=== PATIENT | male | born 1955 | race Caucasian/White ===

== ENCOUNTER 2017-07-17 19:34 | Observation (INO) ==
[2017-07-17] MEDS ORDERED: Aspirin 81 MG TAB.CHEW PO ONE (19:45)
--- NOTE | 2017-07-17 19:49 | Emergency Department Note ---
Disposition Clinical Impression: Chest pain Qualifiers: Chest pain type: unspecified Qualified Code(s): R07.9 - Chest pain, unspecified Headache Qualifiers: Headache type: unspecified Headache chronicity pattern: acute headache Intractability: not intractable Qualified Code(s): R51 - Headache Disposition: Admitted As Inpatient Condition: Good Referrals: Anu Forman CNP [Primary Care Provider] - Forms: ED Satisfaction Letter General Adult HPI - General Chief complaint: ED Chest Pain Stated complaint: chest pain Time Seen by Provider: 07/17/17 19:41 Source: patient, family Limitations: no limitations Nursing Notes Reviewed: Yes Vital Signs Reviewed: Yes - History of Present Illness HPI Narrative: Male patient presenting to the emergency department complaining of a 2 hour history of left-sided chest pain. States it radiates down his left arm up to his neck and in his head. Was not doing anything when this started. States that he was diaphoretic when it started and got nauseated. No vomiting. Pain Scale: 6 - Related Data Home Medications Medication Instructions Recorded Confirmed Atorvastatin [Lipitor] 40 mg PO HS 01/11/17 07/17/17 Gabapentin [Neurontin] 800 mg PO TID 01/11/17 07/17/17 Empagliflozin [Jardiance] 10 mg PO DAILY 07/17/17 07/17/17 HYDROcodone/Acet 10/325 mg [[place] 1 tab PO Q6HR PRN 07/17/17 07/17/17 10-325 mg] Allergies Allergy/AdvReac Type Severity Reaction Status Date / Time acetaminophen [From Percocet] AdvReac Gastrointestinal Verified 07/17/17 19:42 Upset meloxicam [From Mobic] AdvReac Gastrointestinal Verified 07/17/17 19:42 Upset Oxycodone [From Percocet] AdvReac Gastrointestinal Verified 07/17/17 19:42 Upset All systems ED: reviewed and negative except as stated. Constitutional: Denies: fever, chills ENT ED: Denies: congestion Cardiovascular: Reports: chest pain. Denies: palpitations, dyspnea on exertion , syncope Respiratory: Denies: cough, dyspnea, wheezes Gastrointestinal: Denies: abdominal pain, nausea, vomiting, diarrhea, hematemesis, melena, hematochezia Genitourinary: Denies: urgency, dysuria, frequency, hematuria Musculoskeletal: Denies: back pain, neck pain Integumentary: Denies: rash, abrasion, lesions Neurological: Reports: headache. Denies: weakness, numbness, paresthesias Past Medical History - Past Medical History Attestation: Yes The following information was validated with the patient. Source: patient Medical history: Reports: arthritis, diabetes, hyperlipidemia Surgical history: Reports: knee replacement Psychiatric history: Reports: no psych history - Social History Smoking Status: Current every day smoker Smokeless Tobacco Status: No Alcohol use: Reports: occasionally Drug use: Reports: none Physical Exam - General Limitations: no limitations General appearance: alert, in distress (Appears to be in pain.) - Head Head exam: atraumatic, normocephalic, normal inspection - Eye Eye exam: Present: normal appearance, PERRL, EOMI - ENT ENT exam: normal exam, normal oropharynx, mucous membranes moist - Neck Neck exam: Present: normal inspection, full ROM, trachea midline - Chest Chest inspection: Present: normal inspection, symmetric chest wall rise. Absent : tenderness - Respiratory Respiratory exam: Present: normal lung sounds bilaterally. Absent: respiratory distress, wheezes, accessory muscle use - Cardiovascular Cardiovascular exam: Present: regular rate, normal rhythm, normal heart sounds - Abdominal Exam Abdominal exam: Present: soft, Non-Tender. Absent: tenderness, distention, guarding, rebound, rigidity, organomegaly - Extremities Exam Extremities exam: Present: normal inspection, full ROM, normal capillary refill. Absent: tenderness, pedal edema - Back Exam Back exam: Present: normal inspection, full ROM. Absent: tenderness - Neurological Exam Neurological exam: Present: alert, oriented X3 - Psychiatric Psychiatric exam: Present: normal affect, normal mood - Skin Skin exam: Present: warm, dry, intact, normal color. Absent: rash, cyanosis, diaphoresis, erythema Course Course Narrative: Patient presenting to the emergency department complaining of a 2 hour history of chest pain. He states it is left-sided. He describes it as a tightness and throbbing to the left side. He states it started out as a sharp pain. It radiates down his left arm. He has never had pain like this previously. He has no history of any heart issues. He is not nauseated with this. He is laying bed grimacing at this time. He denies any shortness of breath associated with this. Denies any fevers or chills. Lung sounds are clear heart tones are normal and abdomen is soft and nontender. He has no signs of edema to his extremities. He states he was not doing any activity whenever the pain started. He is diabetic. We will get basic lab workup on palpation as well as EKG right and with nitroglycerin and aspirin. States he can take aspirin - Reevaluation(s) Reevaluation #1: Patient is now complaining of left neck pain in the left-sided headache. He states that his chest pain is almost completely relieved at this time. He states that this was present prior to his chest pain starting. However while was in the room earlier he denied a headache. Will provide patient with pain medication. He refused any additional pain medication until after the CTA of his head and neck. Patient has no bruits that I can auscultate. There are no signs of Judith's syndrome. We will admit patient to the hospital for ACS rule out. Time: 20:56 Vital Signs Temperature 98.1 F 07/17/17 19:42 Pulse Rate 78 07/17/17 19:42 Respiratory Rate 20 07/17/17 19:42 Blood Pressure 143/79 07/17/17 19:42 O2 Sat by Pulse Oximetry 95 07/17/17 19:42 Temperature 98.1 F 07/17/17 19:42 Pulse Rate 77 07/17/17 21:12 Respiratory Rate 16 07/17/17 21:12 Blood Pressure 109/63 07/17/17 21:12 O2 Sat by Pulse Oximetry 94 07/17/17 21:12 Oxygen Delivery Oxygen Delivery Room Air Medical Decision Making - Medical Records Medical records reviewed: Yes I reviewed the patient's medical records. - Lab Data Lab results reviewed: Yes I reviewed the patient's lab results. Result diagrams: 07/17/17 19:45 07/17/17 19:45 Lab Results 07/17/17 07/17/17 07/17/17 Range/Units 19:45 19:45 19:45 WBC 10.8 (4.3-11.1) K/mcL RBC 5.10 (4.19-5.50) M/mcL Hgb 14.4 (12.9-16.9) g/dL Hct 43.4 (37.5-50.1) % MCV 85.1 (83.0-100.0) fL MCH 28.2 (28.0-33.3) pg MCHC 33.2 (31.6-35.5) g/dL RDW 13.7 (11.5-14.5) % Plt Count 161 (140-400) K/mcL MPV 9.1 L (9.4-12.4) fL Immature Gran % 0.5 (0-4) % Seg Neutrophils % 69.9 % Lymphocytes % 18.3 % Monocytes % 7.7 % Eosinophils % 3.1 % Basophils % 0.5 % Neutrophils # 7.6 (1.6-8.9) K/mcL Lymphocytes # 2.0 (0.6-4.6) K/mcL Monocytes # 0.8 (0.0-1.3) K/mcL Eosinophils # 0.3 (0.0-0.6) K/mcL Basophils # 0.1 (0.0-0.2) K/mcL PT 11.2 (9.4-12.1) Seconds INR 1.0 APTT 30.0 (26.0-36.0) Seconds Sodium 137 (136-145) mEq/L Potassium 3.9 (3.5-4.5) mEq/L Chloride 105 (98-109) mEq/L Carbon Dioxide 21 (19-29) mEq/L BUN 15 (8-26) mg/dL Creatinine 0.95 (0.72-1.25) mg/dL Est GFR ( Amer) > 60 (> 60) Est GFR (Non-Af Amer) > 60 (> 60) BUN/Creatinine Ratio 16 (6-26) Glucose 131 H (70-99) mg/dL Calculated Osmolality 287 (280-300) Calcium 9.5 (8.6-10.8) mg/dL Troponin I (0-0.03) ng/mL 07/17/17 Range/Units 19:45 WBC (4.3-11.1) K/mcL RBC (4.19-5.50) M/mcL Hgb (12.9-16.9) g/dL Hct (37.5-50.1) % MCV (83.0-100.0) fL MCH (28.0-33.3) pg MCHC (31.6-35.5) g/dL RDW (11.5-14.5) % Plt Count (140-400) K/mcL MPV (9.4-12.4) fL Immature Gran % (0-4) % Seg Neutrophils % % Lymphocytes % % Monocytes % % Eosinophils % % Basophils % % Neutrophils # (1.6-8.9) K/mcL Lymphocytes # (0.6-4.6) K/mcL Monocytes # (0.0-1.3) K/mcL Eosinophils # (0.0-0.6) K/mcL Basophils # (0.0-0.2) K/mcL PT (9.4-12.1) Seconds INR APTT (26.0-36.0) Seconds Sodium (136-145) mEq/L Potassium (3.5-4.5) mEq/L Chloride (98-109) mEq/L Carbon Dioxide (19-29) mEq/L BUN (8-26) mg/dL Creatinine (0.72-1.25) mg/dL Est GFR ( Amer) (> 60) Est GFR (Non-Af Amer) (> 60) BUN/Creatinine Ratio (6-26) Glucose (70-99) mg/dL Calculated Osmolality (280-300) Calcium (8.6-10.8) mg/dL Troponin I 0.00 (0-0.03) ng/mL - Radiology Data Radiology results reviewed: Yes I reviewed the patient's radiology results. Chest X-Ray 07/17/17 19:45 IMPRESSION: No acute cardiopulmonary process. D/ : / 07/17/2017 20:51:59 Kourtney Gao MD / andrea Interpreting Provider: Kourtney Gao MD Angiography CT 07/17/17 20:58 IMPRESSION: 1. No acute intracranial abnormality. 2. Unremarkable CTA of the head. D/ / Jose G Tcuker MD / Jose G Tucker MD Interpreting Provider: Jose G Tucker MD Neck CTA 07/17/17 20:58 IMPRESSION: Minimal atherosclerotic disease in the region of the internal carotid artery bulbs bilaterally without a significant stenosis as discussed above. D/ / 07/17/2017 22:36:18 Kourtney Gao MD / andrea Interpreting Provider: Kourtney Gao MD - EKG Data EKG #1 EKG attestation: Yes I reviewed and interpreted this EKG. EKG results narrative: Normal sinus rhythm at a rate of 77. MO interval is 169. Your sugar duration is 93. QT is 372. QTC is 44. No signs of acute ischemia. No significant change from previous EKG dated 01/03/2017. Attestation Statement - Attestation Attestation: I, William Mackey MD, personally evaluated this patient and discussed their management with the resident physician. I reviewed the resident's note and agree with the documented findings, medical decision making, and plan of care. 62-year-old male persist emergency department with a complaint of left-sided chest pain which started earlier this evening. H&N sure of the exact time of onset. He describes it as a pressure like someone sitting on his chest. The pain then radiated to the left side of the neck and up into the left side of the head. Also radiated to the left arm with some shortness of breath and diaphoresis. Chest pain has mostly resolved but now patient complains of severe pain in the left side of his neck and left-sided headache. On examination patient is a well-developed well-nourished male in no acute distress. He is alert and oriented 3. There is no cyanosis or diaphoresis. Neck is supple and nontender with full range of motion. No JVD. No carotid bruits. Chest is nontender to palpation. Breath sounds are clear and equal bilaterally. Heart regular rate and rhythm. Abdomen soft and nontender with normal bowel sounds. No gross focal neurological deficits. Labs reviewed. Troponin 0.00. No acute changes on EKG. Chest x-ray negative. CTA of the head and neck obtained and showed no acute intracranial abnormality. Some mild atherosclerosis with no significant stenosis. The hospitalist, Dr. Almanzar, was consulted and accepted admission of the patient. Heart Score - Score History: Moderately Suspicious EKG: Normal Age: 45-65 Risk Factors: 1-2 risk factors Troponin: Less than normal limit HEART Score Total: 3
[2017-07-17 20:00] LABS: Basophils # 0.1 K/mcL (0.0-0.2); Basophils % 0.5 %; Eosinophils # 0.3 K/mcL (0.0-0.6); Eosinophils % 3.1 %; Hematocrit 43.4 % (37.5-50.1); Hemoglobin 14.4 g/dL (12.9-16.9); Immature Granulocytes % 0.5 % (0-4); Lymphocytes % 18.3 %; Mean Corpuscular HGB Conc 33.2 g/dL (31.6-35.5); Mean Corpuscular Hemoglobin 28.2 pg (28.0-33.3); Mean Corpuscular Volume 85.1 fL (83.0-100.0); Mean Platelet Volume 9.1 fL (9.4-12.4); Monocytes # 0.8 K/mcL (0.0-1.3); Monocytes % 7.7 %; Neutrophils # 7.6 K/mcL (1.6-8.9); Platelet Count 161 K/mcL (140-400); Red Cell Distribution Width 13.7 % (11.5-14.5); Segmented Neutrophils % 69.9 %
[2017-07-17] MEDS: Nitroglycerin 0.4 MG TAB.SUBL SL ONE ×3 (20:03→20:21)
[2017-07-17] MEDS ORDERED: *HR* Morphine 2 MG/ML SYRINGE ONE (20:08)
[2017-07-17 20:10] LABS: Prothrombin Time 11.2 Seconds (9.4-12.1)
[2017-07-17 20:12] LABS: BUN/Creatinine Ratio 16 (6-26); Blood Urea Nitrogen 15 mg/dL (8-26); Calcium 9.5 mg/dL (8.6-10.8); Carbon Dioxide 21 mEq/L (19-29); Chloride 105 mEq/L (98-109); Glucose 131 mg/dL (70-99); Osmolality,Calculated 287 (280-300); Potassium 3.9 mEq/L (3.5-4.5); Sodium 137 mEq/L (136-145); eGFR For African Americans > 60 (> 60); eGFR For Non-African Americans > 60 (> 60)
[2017-07-17] MEDS: *HR* Morphine 2 MG/ML SYRINGE IVP ONE ×2 (20:12→23:43)
[2017-07-17] MEDS ORDERED: 0.9 % Sodium Chloride 1,000 ML IVC ONE (20:59)
[2017-07-17] MEDS ORDERED: 0.9 % Sodium Chloride 1,000 ML IVC SCH (23:45)
[2017-07-17] MEDS ORDERED: *HR* HYDROcodone/Acet 10/325 mg TABLET PO PRN (23:47)
[2017-07-17] MEDS ORDERED: Naloxone 0.4 MG/ML INJ IVP PRN (23:48)
[2017-07-17] MEDS ORDERED: *HR* Morphine 2 MG/ML SYRINGE IVP PRN (23:48)
[2017-07-17] MEDS ORDERED: Nitroglycerin 0.4 MG TAB.SUBL SL PRN (23:50)
--- NOTE | 2017-07-17 23:51 | Internal Med History&Physical ---
Date of Encounter: 07/17/17 Time of Encounter: 23:51 Assessment and Plan (1) Chest pain Current visit: Yes Status: Acute Trend troponin, telemetry, unable to exercise will therefore order a chemical stress test in the morning Qualifiers: Chest pain type: precordial pain Qualified Code(s): R07.2 - Precordial pain (2) HLD (hyperlipidemia) Current visit: Yes Status: Acute The medicines Qualifiers: Hyperlipidemia type: pure hypercholesterolemia Qualified Code(s): E78.00 - Pure hypercholesterolemia, unspecified; E78.0 - Pure hypercholesterolemia (3) DMII (diabetes mellitus, type 2) Current visit: Yes Status: Acute Continue medicines Qualifiers: Diabetes mellitus complication status: without complication Diabetes mellitus detention insulin use: without detention use Qualified Code(s): E11.9 - Type 2 diabetes mellitus without complications Internal Medicine - H&P: HPI Chief complaint: Chest pain History of present illness: Mr. Ferrell is a 62 year old male diabetes type 2, high cholesterol, smoking history who presents with sudden onset left-sided chest pain. Admitted for cardiac chest pain rule out. He has significant risk factors to include at least a pack a day smoking for many years, diabetes, high cholesterol, significant CAD and has family members - his brother had modest 10 stents placed. He had onset of chest pain left-sided at 6:30 PM this evening while sitting down having conversation with his sister. Pain described as pulsatile, on and off with radiation to the left arm, fingers and to the left side of the neck and head. The remaining of pain is variable from 6-8 out of 10. Improve with nitroglycerin, aspirin, morphine. He described the pain gave way to the headache subsequently which prompted the ED to order a CT angiogram of the head and neck that had no acute change noted EKG personally reviewed revealed weight of 77, normal sinus rhythm CTA OF THE NECK 07/17/2017 10:04 pm TECHNIQUE: CTA of the neck was performed with the administration of intravenous contrast. Multiplanar reformatted images are provided for review. MIP images are provided for review. Stenosis of the internal carotid arteries measured using NASCET criteria. Dose modulation, iterative reconstruction, and/or weight based adjustment of the mA/kV was utilized to reduce the radiation dose to as low as reasonably achievable. COMPARISON: None. HISTORY: ORDERING SYSTEM PROVIDED HISTORY: head and neck pain 70 ml of iso 370 Initial evaluation. FINDINGS: AORTIC ARCH/GREAT VESSELS: There is a normal branch pattern of the aortic arch. No significant stenosis is seen of the innominate artery or subclavian arteries. There is mild atherosclerotic disease of the origin of the innominate and left subclavian disease of the aortic arch. Arteries. There is mild atherosclerotic disease of the origin of the left common carotid artery. CAROTID ARTERIES: The common carotid arteries are normal in appearance without evidence of a flow limiting stenosis. The internal carotid arteries are normal in appearance without evidence of a significant flow limiting stenosis by NASCET criteria. No dissection or arterial injury is seen. There is mild atherosclerotic disease in the region of the left and right internal carotid artery bulbs without a significant stenosis. There is approximately 10% stenosis of the internal carotid artery bulb on the left and approximately 30% stenosis of the internal carotid artery bulb on the right. VERTEBRAL ARTERIES: The vertebral arteries both arise from the subclavian arteries and are normal in caliber without evidence of flow limiting stenosis or dissection. SOFT TISSUES: There are small lymph nodes throughout the neck that are nonspecific. There is no gross abnormality of the visualized lung apices. The airway in general is intact. There is no abnormality of the visualized brain parenchyma or orbits. No obvious soft tissue mass. BONES: The visualized osseous structures appear unremarkable. CT/CT angio neck IMPRESSION: Minimal atherosclerotic disease in the region of the internal carotid artery bulbs bilaterally without a significant stenosis as discussed above. CT/CT angio head wo/w con IMPRESSION: 1. No acute intracranial abnormality. 2. Unremarkable CTA of the head. XR/XR chest 1V portable IMPRESSION: No acute cardiopulmonary process. Past Med Surg Social Fam HX - Past Medical History Medical history: arthritis, diabetes, hyperlipidemia Psychiatric history: no psych history - Past Surgical History Surgical History: knee replacement - Social History Smoking Status: Current every day smoker Smokeless Tobacco Status: No Alcohol use: occasionally Drug use: none Internal Medicine - H&P: Meds Atorvastatin [Lipitor] 40 mg PO HS 01/11/17 [History] Gabapentin [Neurontin] 800 mg PO TID 01/11/17 [History] Empagliflozin [Jardiance] 10 mg PO DAILY 07/17/17 [History] HYDROcodone/Acet 10/325 mg [[place] 10-325 mg] 1 tab PO Q6HR PRN 07/17/17 [History ] 3 Allergy/AdvReac Type Severity Reaction Status Date / Time acetaminophen [From Percocet] AdvReac Gastrointestinal Verified 07/17/17 19:42 Upset meloxicam [From Mobic] AdvReac Gastrointestinal Verified 07/17/17 19:42 Upset Oxycodone [From Percocet] AdvReac Gastrointestinal Verified 07/17/17 19:42 Upset All Systems PM: A 10-system review of systems was performed and is negative for pertinent findings except as documented above in the HPI. Review of systems: ROS 14 point review of systems reviewed as best as possible given presentation. Pertinent positive or negative as per HPI or otherwise reviewed as negative - Constitutional Vitals: Temp Pulse Resp BP Pulse Ox 98.1 F 56 20 117/58 95 07/17/17 19:42 07/17/17 23:31 07/17/17 23:44 07/17/17 23:44 07/17/17 23:31 Exam: General - AAO x 3 Psych - Appropriate affect/speech. No agitation Eyes - DYANA. Eye lids intact. No scleral icterus Heart - Sinus. RRR. S1 and S2 present. No added HS/murmurs appreciated. No elevated JVD appreciated. Lung - Adequate air entry b/l, No crackles/wheezes appreciated GI - Soft, non-tender. No hepatosplenomegaly/ascites. BS+ - No CVA/suprapubic tenderness or palpable bladder distension Skin - Intact. No rash/petechiae/ecchymosis. Warm extremities Internal Med - H&P Results - Labs CBC & Chem 7: 07/17/17 19:45 07/17/17 19:45
[2017-07-18] MEDS: Nicotine 21 MG PATCH.TD24 TD SCH ×2 (00:32→11:33)
[2017-07-18] MEDS ORDERED: Regadenoson 0.4 MG/5 ML SYRINGE IVP ONE (06:24)
[2017-07-18] MEDS: Gabapentin 400 MG CAPSULE PO SCH ×3 (11:33→20:03)
--- NOTE | 2017-07-18 17:14 | Internal Med Progress Note ---
Date of Encounter: 07/18/17 Time of Encounter: 17:18 - Assessment and plan (1) Chest pain Current Visit: Yes Status: Acute Assessment and plan: presented with chest pain that started day of presentation. No known hx CAD, no previous ischemic evaluation. Serial troponin negative. EKG without acute ST changes. Stress test pending. Cont ASA, statin Qualifiers: Chest pain type: precordial pain Qualified Code(s): R07.2 - Precordial pain (2) DMII (diabetes mellitus, type 2) Current Visit: Yes Status: Acute Assessment and plan: per hx. Control unknown. Hgb A1c pending Qualifiers: Diabetes mellitus complication status: without complication Diabetes mellitus group home insulin use: without group home use Qualified Code(s): E11.9 - Type 2 diabetes mellitus without complications (3) HLD (hyperlipidemia) Current Visit: Yes Status: Acute Assessment and plan: per hx. Cont home statin Qualifiers: Hyperlipidemia type: pure hypercholesterolemia Qualified Code(s): E78.00 - Pure hypercholesterolemia, unspecified; E78.0 - Pure hypercholesterolemia (4) DVT prophylaxis Current Visit: Yes Status: Acute Assessment and plan: Lovenox - Subjective Interval history: Seen and examined at bedside, patient is new to me. Information obtained from chart review and patient report. Says he feels fine, denies chest pain. He has no complaints other than wanting to smoke. No CP, no SOB - Constitutional Vitals: Temp Pulse Resp BP Pulse Ox 97.4 F L 55 20 132/78 94 07/18/17 15:29 07/18/17 15:29 07/18/17 15:29 07/18/17 15:29 07/18/17 15:29 - Head Head exam: Present: atraumatic, normocephalic - Eye Eye exam: Present: PERRL, conjuntiva pink, sclera anicteric Pupils: Present: PERRL - Neck Neck exam general surgery: Present: supple, trachea midline. Absent: lymphadenopathy - Respiratory Respiratory exam: Present: CTAB. Absent: accessory muscle use, rales, rhonchi, wheezes - Cardiovascular Cardiovascular exam: Present: RRR, +S1, +S2. Absent: diastolic murmur, gallop, rubs, systolic murmur - GI/Abdominal GI/Abdominal exam: Present: normal bowel sounds, soft, no peritoneal signs. Absent: distended, tenderness - Extremities Exam Extremities exam: Present: warm, radial pulses palpable and symmetrical. Absent : calf tenderness, cyanotic, pedal edema - Neurological Exam Neurological exam: Present: CN II-XII intact, oriented X3, no focal deficits. Absent: pronater drift, facial droop, speech deficit - Skin Skin exam: Present: dry, intact Internal Medicine: Result - Labs CBC & Chem 7: 07/17/17 19:45 07/17/17 19:45 Labs: Cardiac Enzymes 07/18/17 07/18/17 07/18/17 Range/Units 01:12 05:59 11:44 Troponin I 0.01 0.00 0.00 (0-0.03) ng/mL - ABG Interpretation ABG results: PT/INR, D-dimer PT 11.2 Seconds (9.4-12.1) 07/17/17 19:45 Consult Discharge Plan - Plan Referrals: Anu Forman, [employer] [Primary Care Provider] -
[2017-07-18] MEDS: *HR* Enoxaparin 40 MG/0.4 ML SYRINGE SQ SCH (17:47)
--- NOTE | 2017-07-18 18:55 | Electrocardiograph Report ---
[address] [address] Test Date: 2017-07-17 Pat Name: Nicolás Ferrell Department: 103 Room: [facility] Gender: M [employer] Director: : 1955 Requested By: Jody Jordan Order Number: [id number] Reading MD: Enzo Garcia MD Measurements Intervals [place] Rate: 77 P: 5 NV: 169 QRS: 16 QRSD: 93 T: 28 QT: 372 QTc: 404 Interpretive Statements SINUS RHYTHM Electronically Signed On 07-18-2017 18:54:09 EDT by Enzo Garcia MD
[2017-07-19 05:07] LABS: Hematocrit 40.5 % (37.5-50.1); Hemoglobin 13.2 g/dL (12.9-16.9); Mean Corpuscular HGB Conc 32.6 g/dL (31.6-35.5); Mean Corpuscular Hemoglobin 28.8 pg (28.0-33.3); Mean Corpuscular Volume 88.2 fL (83.0-100.0); Mean Platelet Volume 9.3 fL (9.4-12.4); Platelet Count 152 K/mcL (140-400); Red Blood Count 4.59 M/mcL (4.19-5.50); Red Cell Distribution Width 14.2 % (11.5-14.5)
[2017-07-19 05:19] LABS: Hemoglobin A1C 6.3 %
[2017-07-19 05:24] LABS: Alanine Aminotransferase 14 Units/L (0-55); Albumin 3.2 g/dL (3.5-5.0); Albumin/Globulin Ratio 0.8 (1.1-2.2); Alkaline Phosphatase 75 Units/L (38-126); Aspartate Amino Transferase 12 Units/L (5-34); BUN/Creatinine Ratio 16 (6-26); Bilirubin,Total 0.3 mg/dL (0.2-1.2); Blood Urea Nitrogen 13 mg/dL (8-26); Calcium 8.9 mg/dL (8.6-10.8); Carbon Dioxide 22 mEq/L (19-29); Chloride 107 mEq/L (98-109); Glucose 145 mg/dL (70-99); Osmolality,Calculated 289 (280-300); Potassium 4.3 mEq/L (3.5-4.5); Sodium 138 mEq/L (136-145); Total Protein 7.2 g/dL (6.0-8.3); eGFR For African Americans > 60 (> 60); eGFR For Non-African Americans > 60 (> 60)
[2017-07-19] MEDS: *HR* Enoxaparin 40 MG/0.4 ML SYRINGE SQ SCH (05:49)
[2017-07-19] MEDS ORDERED: Regadenoson 0.4 MG/5 ML SYRINGE IVP ONE (06:16)
[2017-07-19] MEDS: Gabapentin 400 MG CAPSULE PO SCH (07:53)
[2017-07-19] MEDS: Nicotine 21 MG PATCH.TD24 TD SCH (07:53)
[2017-07-19 08:16] LABS: Chol/HDL Ratio 7.7 (0-4.9); Cholesterol 161 mg/dL (< 200); HDL Cholesterol 21 mg/dL (40-59); Triglycerides 447 mg/dL (< 150)
[2017-07-19 11:09] VITALS: BP 129/73
--- NOTE | 2017-07-19 13:21 | Nuclear Medicine Stress Report ---
Regadenoson Nuclear 2 day Name: Nicolás Ferrell Date of Study: 07/18/2017 Date: 1955 Ht: 70.0 in Medical Record#: [id number] Age: 62 Wt: 269.0 lb Gender: Male Order #: [id number] Location: [facility] Room: [facility] Supervising Provider: Cruz Felix CNP Reading Physician: Abdullahi Moody MD, [facility] Ordering Physician: Kelvin Keane MD Stress Technologist: Kwan Hines CRT Rn Access: Sulema Elizabeth Indications: Chest Pain Impression: Gated LVEF > 70%. Perfusion imaging was negative for ischemia or infarct. History: Diabetes Hypercholesteremia History of Smoking Stress Test Summary: Stress Test Type: Pharmacologic Regadenoson 0.4mg/5ml given IV Baseline Information: Initial Heart Rate: 52 Blood Pressure: 130/70 Stress Information: Test Terminated Due to (primary): As per protocol Maximum Blood Pressure: 138/80 Maximum Heart Rate: 91 Percent Maximum Heart Rate Achieved: 57 Double Product: [id number] Symptoms: No chest symptoms Nuclear Summary: SPECT myocardial perfusion imaging using Tc99m Sestamibi given intravenously was performed at rest and following cardiac stress testing. The resting images were obtained following initial dose of 33.8 mCi. Following stress an additional dose of 33.6 mCi was given at peak exercise or 30 seconds post regadenoson infusion. Findings: Stress Note * Baseline ECG demonstrated sinus bradycardia, poor r-wave progression. * No baseline arrhythmias were noted. * Patient had no chest pain during stress. * No arrhythmias were noted during stress. * No significant ECG changes with regadenoson. Hemodynamic responses * Normal hemodynamic responses to pharmacologic stress. Study Quality * Study quality is average. Gated EF > 70% * Gated LVEF > 70%. Left Ventricle * The left ventricle is not dilated. * Normal Segmental Perfusion in rest. * Normal segmental perfusion in stress. * Mild inferior wall artifact is noted. TID * No evidence of transient ischemic dilatation. Updated by Abdullahi Moody MD, [facility] on 07/19/2017 1:14:18 PM electronically signed on 07/19/2017 1:14:57 PM with status of Final
--- NOTE | 2017-07-19 13:34 | Discharge Summary ---
Date of Encounter: 07/19/17 Time of Encounter: 13:22 - Discharge Diagnosis (1) Chest pain Priority: Primary Status: Acute Comments: Nicolás Ferrell is a 62-year-old male with past medical history diabetes and hyperlipidemia who presented to [facility] on 07/17/17 with complaints of chest pain. He underwent a stress test which was negative for ischemia or infarct. He was discharged home in stable condition with outpatient follow-up. 1. Chest pain: presented with chest pain that started day of presentation. No known hx CAD, no previous ischemic evaluation. Serial troponin negative. EKG without acute ST changes. 07/19/17 stress test negative for ischemia or infarct. An echocardiogram was not performed, patient did not want to stay inpatient the test. Chest pain possibly musculoskeletal as patient reported moving furniture and doing heavy lifting when chest pain occurred. Cont ASA, statin. Recommend outpatient follow-up with PCP for echocardiogram. 2. Hyperlipidemia: LDL not calculated as triglycerides were greater than 400. Increase simvastatin to high intensity. Recommend lifestyle/diet modifications and repeat lipid panel with PCP in 3 months. 3. Diabetes: per hx. Hgb A1c 6.2. Continue home Jardiance. Follow-up with PCP as needed Qualifiers: Chest pain type: other chest pain Qualified Code(s): R07.89 - Other chest pain; R07.8 - Other chest pain (2) DMII (diabetes mellitus, type 2) Priority: Primary Status: Acute Qualifiers: Diabetes mellitus complication status: without complication Diabetes mellitus parts counterman insulin use: without mcfp use Qualified Code(s): E11.9 - Type 2 diabetes mellitus without complications (3) HLD (hyperlipidemia) Priority: Primary Status: Acute Qualifiers: Hyperlipidemia type: pure hypercholesterolemia Qualified Code(s): E78.00 - Pure hypercholesterolemia, unspecified; E78.0 - Pure hypercholesterolemia - Discharge Medications Prescriptions: Aspirin [Lo-Dose Aspirin EC] 81 mg PO DAILY #30 tablet. Atorvastatin [Lipitor] 80 mg PO HS #30 tablet Home Medications: Gabapentin [Neurontin] 800 mg PO TID 01/11/17 [History] Empagliflozin [Jardiance] 10 mg PO DAILY 07/17/17 [History] HYDROcodone/Acet 10/325 mg [[place] 10-325 mg] 1 tab PO Q6HR PRN 07/17/17 [History ] Aspirin [Lo-Dose Aspirin EC] 81 mg PO DAILY #30 tablet. 07/19/17 [Rx] Atorvastatin [Lipitor] 80 mg PO HS #30 tablet 07/19/17 [Rx] Allergies/Adverse Reactions: 3 Allergy/AdvReac Type Severity Reaction Status Date / Time acetaminophen [From Percocet] AdvReac Gastrointestinal Verified 07/17/17 19:42 Upset meloxicam [From Mobic] AdvReac Gastrointestinal Verified 07/17/17 19:42 Upset Oxycodone [From Percocet] AdvReac Gastrointestinal Verified 07/17/17 19:42 Upset Procedures/tests Complete & Pending: Procedures Performed prior 72 hours Category Date Time Status NM heather perf SPECT multi [NM] Routine Exams 07/17/17 23:49 Taken SP pharm nuclear stress Routine Y 07/19/17 07:40 Completed Date of admission: 07/17/17 23:29 Primary care physician: Anu Forman CNP Discharging clinician: Kamryn Dickinson Anticipated date of discharge: 07/19/17 - Patient Status Disposition: Home, Self-Care Functional capacity at discharge: independent ambulation Overall status at discharge: patient is back to baseline - Discharge Instructions Follow Up With: Anu Forman CNP [Primary Care Provider] - - Diet and Activity Activity: resume usual activities as tolerated Diet: diabetic diet, low fat, low cholesterol Interval History: Seen and examined at bedside. Stress test completed proximally 2 hours prior to my exam. Patient is frustrated and irritated, wants to eat and go home. Denies chest pain, no shortness of breath. Spoke to patient regarding increase and statin and addition of ASA. Strongly recommended dietary and lifestyle modifications. Denies chest pain, no SOB Hospital course: See assessment and plan for hospital course. Time spent discussing smoking cessation with patient: 3 to 10 minutes - Time Spent with Patient Total time spent providing and/or coordinating discharge services: Less than 30 minutes - Constitutional Vitals: Temp Pulse Resp BP Pulse Ox 98.3 F 59 16 129/73 96 07/19/17 09:50 07/19/17 09:50 07/19/17 09:50 07/19/17 09:50 07/19/17 09:50 General appearance: Present: A&O X 3, morbidly obese - Head Head exam: Present: atraumatic, normocephalic - Eye Eye exam: Present: PERRL, conjuntiva pink, sclera anicteric Pupils: Present: PERRL - Neck Neck exam general surgery: Present: supple, trachea midline. Absent: lymphadenopathy - Respiratory Respiratory exam: Present: CTAB. Absent: accessory muscle use, rales, rhonchi, wheezes - Cardiovascular Cardiovascular exam: Present: RRR, +S1, +S2. Absent: diastolic murmur, gallop, rubs, systolic murmur - GI/Abdominal GI/Abdominal exam: Present: normal bowel sounds, soft, no peritoneal signs. Absent: distended, tenderness - Extremities Exam Extremities exam: Present: warm, radial pulses palpable and symmetrical. Absent : calf tenderness, cyanotic, pedal edema - Neurological Exam Neurological exam: Present: CN II-XII intact, oriented X3, no focal deficits. Absent: pronater drift, facial droop, speech deficit - Skin Skin exam: Present: dry, intact
== END 2017-07-19 14:36 | disposition home or self-care (01) ==
LOC: EMEROO 19:34 → 3NENU 19:34
PROVIDERS: ADMIT Internal Medicine Hematology & Oncology; ATTEND Hospitalist

== ENCOUNTER 2019-07-22 07:26 | Observation (INO) ==
[2019-07-22] MEDS ORDERED: Isovue-370 500 ML BOTTLE IVP ONE (07:32)
[2019-07-22] MEDS ORDERED: Aspirin 325 MG TABLET PO ONE (07:56)
[2019-07-22 08:00] LABS: Basophils # 0.1 K/mcL (0.0-0.2); Basophils % 0.7 %; Eosinophils # 0.3 K/mcL (0.0-0.6); Eosinophils % 3.7 %; Hematocrit 43.7 % (37.5-50.1); Hemoglobin 15.1 g/dL (12.9-16.9); Lymphocytes # 1.5 K/mcL (0.6-4.6); Lymphocytes % 21.7 %; Mean Corpuscular HGB Conc 34.6 g/dL (31.6-35.5); Mean Corpuscular Hemoglobin 30.4 pg (28.0-33.3); Mean Corpuscular Volume 88.1 fL (83.0-100.0); Mean Platelet Volume 9.4 fL (9.4-12.4); Monocytes # 0.6 K/mcL (0.0-1.3); Neutrophils # 4.6 K/mcL (1.6-8.9); Platelet Count 186 K/mcL (140-400); Red Blood Count 4.96 M/mcL (4.19-5.50); Red Cell Distribution Width 14.7 % (11.5-14.5); Segmented Neutrophils % 64.9 %; White Blood Count 7.1 K/mcL (4.3-11.1)
--- NOTE | 2019-07-22 08:01 | Emergency Department Note ---
Disposition Clinical Impression: Chest pain Qualifiers: Chest pain type: unspecified Qualified Code(s): R07.9 - Chest pain, unspecified Disposition: Admitted As Inpatient Condition: Good Forms: ED Satisfaction Letter Time of Disposition: 08:17 General Adult HPI - General Chief complaint: ED Shortness of Breath/Dyspnea Stated complaint: "blood clot on lung" Time Seen by Provider: 07/22/19 07:28 Source: patient Limitations: no limitations Nursing Notes Reviewed: Yes Vital Signs Reviewed: Yes - History of Present Illness HPI Narrative: 64 farhad old male presents to the ED with complaints of chest pressure and exertinal dyspnea that has dvelope over the last few months. Satnam state that he cannot walk tot he front door of his house without becoming short of breath. Satnam has had intermittment chest presure but currently it has resolved. Patient states that he had a colonoscpy done yesterday and that he was getting his cardiac screening and was told by the anesthesiologist that he has a cardiac murmur which appears to be new according to his PCP. Satnam has a medical hsitory significnt for Diabetes, HTN, and high cholesterol and postiive family history and he smokes. Satnam states that he has no previous cardiac workup in the past. He also has developed an increased nonproductive couhg in the past few days as well. Satnams PCP obtained a D-dimer which was otherwise elvated to 1700 but he is not experincing hemopytosis or unilateral leg swelling. He is however experiencing pitting edema bilaterally to the lower extremities. Pain Scale: 3 - Related Data Home Medications Medication Instructions Recorded Confirmed Atorvastatin [Lipitor] 40 mg PO HS 02/15/18 07/22/19 Empagliflozin [Jardiance] 10 mg PO HS 02/15/18 07/22/19 HYDROcodone/Acet 10/325 mg [[place] 1 tab PO Q6HR PRN 02/15/18 07/22/19 10-325 mg] Pregabalin [Lyrica] 400 mg PO HS 02/15/18 07/22/19 Albuterol Sulfate [Proair Hfa] 1 puff IH Q4H PRN 07/22/19 07/22/19 Allergies Allergy/AdvReac Type Severity Reaction Status Date / Time acetaminophen [From Percocet] AdvReac Gastrointestinal Verified 02/15/18 13:02 Upset meloxicam [From Mobic] AdvReac Gastrointestinal Verified 02/15/18 13:02 Upset oxycodone [From Percocet] AdvReac Gastrointestinal Verified 02/15/18 13:02 Upset Constitutional: Reports: weakness. Denies: fever, chills, weight change Eyes: Denies: eye pain, eye discharge, vision change ENT ED: Denies: ear pain, throat pain, dental pain, hearing loss, epistaxis, congestion, dysphagia Cardiovascular: Reports: chest pain, dyspnea on exertion, edema. Denies: palpitations, syncope Respiratory: Reports: cough. Denies: dyspnea, wheezes, hemoptysis, stridor Gastrointestinal: Denies: abdominal pain, nausea, vomiting, diarrhea, constipation, hematemesis, melena, hematochezia Genitourinary: Denies: urgency, dysuria, frequency, hematuria Musculoskeletal: Denies: back pain, neck pain, arthralgia, myalgia Integumentary: Denies: rash, abrasion, lesions Neurological: Denies: headache, weakness, numbness, paresthesias, confusion, abnormal gait, vertigo Psychiatric: Denies: anxiety, depression, suicidal thoughts, homicidal thoughts, auditory hallucinations, visual hallucinations Endocrine: Denies: fatigue Hematological/Lymphatic: Denies: easy bleeding, easy bruising Allergic/Immunologic: Denies: facial swelling, urticaria Past Medical History - Past Medical History Medical history: Reports: arthritis, DVT, diabetes, hyperlipidemia, hypertension, other Surgical history: Reports: herniorrhaphy, knee replacement, orthopedic, other, other Psychiatric history: Reports: no psych history - Social History Smoking Status: Current some day smoker Smokeless Tobacco Status: No Alcohol use: Reports: rarely Drug use: Reports: none Physical Exam - General Limitations: no limitations General appearance: alert, in no apparent distress, obese - Head Head exam: atraumatic, normocephalic, normal inspection - Eye Eye exam: Present: normal appearance, PERRL, EOMI - Expanded Eye Exam Pupils: Bilateral: reactive - ENT ENT exam: normal exam, normal oropharynx, mucous membranes moist - Expanded ENT Exam External ear exam: Present: normal external inspection Mouth exam: Present: normal external inspection Teeth exam: Present: normal inspection Throat exam: Present: normal inspection - Neck Neck exam: Present: normal inspection, full ROM, trachea midline - Chest Chest inspection: Present: normal inspection, symmetric chest wall rise - Respiratory Respiratory exam: Present: normal lung sounds bilaterally - Cardiovascular Cardiovascular exam: Present: regular rate, normal rhythm, normal heart sounds - Abdominal Exam Abdominal exam: Present: soft, Non-Tender. Absent: tenderness, distention, guarding, rebound, rigidity - Extremities Exam Extremities exam: Present: normal inspection, full ROM. Absent: tenderness, pedal edema - Expanded Upper Extremity Exam Shoulder exam: Present: normal inspection, full ROM Arm exam: Present: normal inspection, full ROM Elbow exam: Present: normal inspection, full ROM Forearm/Wrist exam: Present: normal inspection, full ROM Hand exam: Present: normal inspection, full ROM Vascular exam: Normal: capillary refill, radial pulse - Expanded Lower Extremity Exam Hip/Pelvis exam: Present: normal inspection, full ROM Upper leg exam: Present: normal inspection, full ROM Knee exam: Present: normal inspection, full ROM Lower leg exam: Present: normal inspection, full ROM Ankle exam: Present: normal inspection, full ROM Foot/toe exam: Present: normal inspection, full ROM Neurovascular/Tendon exam: Absent: motor deficit, sensory deficit, tendon deficit - Back Exam Back exam: Present: normal inspection, full ROM. Absent: tenderness - Neurological Exam Neurological exam: Present: alert, oriented X3 - Expanded Neurological Exam Patient oriented to: Present: person, place, time Coma Scale Eye Opening: Spontaneous Coma Scale Motor Response: Obeys Commands Coma Scale Verbal Response: Oriented Coma Scale Total: 15 - Psychiatric Psychiatric exam: Present: normal affect, normal mood - Skin Skin exam: Present: warm, dry, intact, normal color Course Course Narrative: I chintan obtain the CTA to rule out Pe, although my clinical suspicion is htat this cardiac related and that his new cardiac murmur may be secondary to a cardiac ischemia at some point and now has resulted into new onset CHF or cardiomy opathy. Due to his heart score alone he will require admission. ASA therapy given, currenty chest pain free - Consultations Consultation #1: Dr. Estrella has called the ED to inquire about admission and I have discussed case with Dr. Estrella who state that he will accept admisison at this time and continue workup. I will otherwise admit to medicine and continue to monitor for CTA results and lab work and update if there needs adjustment to his therapy in the Ed. Time: 08:17 Vital Signs Temperature 97.8 F 07/22/19 07:27 Pulse Rate 78 07/22/19 07:27 Respiratory Rate 18 07/22/19 07:27 Blood Pressure 158/80 07/22/19 07:27 O2 Sat by Pulse Oximetry 95 07/22/19 07:27 Temperature 97.8 F 07/22/19 07:39 Pulse Rate 78 07/22/19 07:39 Respiratory Rate 18 07/22/19 07:39 Blood Pressure 158/80 07/22/19 07:39 O2 Sat by Pulse Oximetry 98 07/22/19 07:39 Oxygen Delivery Oxygen Delivery Room Air Medical Decision Making - Medical Records Medical records reviewed: Yes I reviewed the patient's medical records. - Lab Data Lab results reviewed: Yes I reviewed the patient's lab results. Result diagrams: 07/22/19 07:43 Lab Results 07/22/19 07/22/19 Range/Units 07:43 07:43 WBC 7.1 (4.3-11.1) K/mcL RBC 4.96 (4.19-5.50) M/mcL Hgb 15.1 (12.9-16.9) g/dL Hct 43.7 (37.5-50.1) % MCV 88.1 (83.0-100.0) fL MCH 30.4 (28.0-33.3) pg MCHC 34.6 (31.6-35.5) g/dL RDW 14.7 H (11.5-14.5) % Plt Count 186 (140-400) K/mcL MPV 9.4 (9.4-12.4) fL Immature Gran % 1.0 (0-4) % Seg Neutrophils % 64.9 % Lymphocytes % 21.7 % Monocytes % 8.0 % Eosinophils % 3.7 % Basophils % 0.7 % Neutrophils # 4.6 (1.6-8.9) K/mcL Lymphocytes # 1.5 (0.6-4.6) K/mcL Monocytes # 0.6 (0.0-1.3) K/mcL Eosinophils # 0.3 (0.0-0.6) K/mcL Basophils # 0.1 (0.0-0.2) K/mcL Lactic Acid 1.2 (0.5-2.2) mmol/L - Radiology Data Radiology results reviewed: Yes I reviewed the patient's radiology results. - EKG Data EKG #1 EKG attestation: Yes I reviewed and interpreted this EKG. EKG results narrative: NSR with rate of 68. NO STEMI. nomrla intrvals. no change from 02/12/18. mild q wave present. 0736 Heart Score - Score History: Highly Suspicious EKG: Non Specific repolarisation Disturbance Age: 45-65 Risk Factors: Equal/Greater than 3 risk factor or history of atherosclerotic disease Troponin: Less than normal limit HEART Score Total: 6
[2019-07-22 08:32] LABS: Troponin I < 0.03 ng/mL (< 0.04)
[2019-07-22] MEDS ORDERED: Naloxone 0.4 MG/ML INJ IVP PRN (08:37)
[2019-07-22] MEDS ORDERED: Ondansetron 4 MG/2 ML VIAL IVP PRN (08:37)
--- NOTE | 2019-07-22 09:12 | Internal Med History&Physical ---
Date of Encounter: 07/22/19 Time of Encounter: 09:02 Internal Medicine - H&P: HPI Admitted From: Emergency Dept Plans for Post Hospital Care: Home History of present illness: Mr. Ferrell is a 64 year old male with a history of diabetes, diabetic neuropathy hyperlipidemia hypertension and DEDE noncompliant to CPAP therapy and chronic tobacco use. He presents to the ED with multiple complaints-complaining of chest pressure dyspnea on exertion with minimal activity, acute headache and was told by his PCP that he described this new onset of murmur. She continues to complain of left-sided chest discomfort has been intermittent now months altho ugh with increasing frequency and intensity. He stated that he recently had a colonoscopy yesterday due to his complaint of hematochezia and had polypectomy. She also complains of increasing nonproductive cough and when he presented to his primary care physician outpatient laboratory workup revealed elevated d- dimer. Patient recalls how many history of DVT status post knee arthroplasty but denies being on any anticoagulation therapy chronically. Patient Ashleigh can be reached at [phone], the sister stated that they have a strong family history for coronary artery disease, both parents and patient's younger brother had his first KS at age 29. He could not confirm or refute any prior stress test. Initial acute coronary syndrome workup has been initiated at ED as well as a rule out pulmonary embolism workup with CTA chest pending as well as initial troponin. Per conversation with the ED physician was decided we admit the patient to observation status for continued workup. Past Med Surg Social Fam HX - Past Medical History Medical history: arthritis, DVT, diabetes, hyperlipidemia, hypertension, other Additional medical history: sleep apnea, neuropathy Psychiatric history: no psych history - Past Surgical History Surgical History: herniorrhaphy, knee replacement, orthopedic, other, other Additional surgical history: artificial wrist, screws and rods in arm - Social History Smoking Status: Current some day smoker Smokeless Tobacco Status: No Alcohol use: rarely Drug use: none - Family History Mother Living Status: Hx Family Cancer: Yes Internal Medicine - H&P: Meds Atorvastatin [Lipitor] 40 mg PO HS 02/15/18 [History] Empagliflozin [Jardiance] 10 mg PO HS 02/15/18 [History] HYDROcodone/Acet 10/325 mg [[place] 10-325 mg] 1 tab PO Q6HR PRN 02/15/18 [History] Pregabalin [Lyrica] 400 mg PO HS 02/15/18 [History] Albuterol Sulfate [Proair Hfa] 1 puff IH Q4H PRN 07/22/19 [History] Allergy/AdvReac Type Severity Reaction Status Date / Time acetaminophen [From Percocet] AdvReac Gastrointestinal Verified 02/15/18 13:02 Upset meloxicam [From Mobic] AdvReac Gastrointestinal Verified 02/15/18 13:02 Upset oxycodone [From Percocet] AdvReac Gastrointestinal Verified 02/15/18 13:02 Upset All Systems PM: GENERAL: Denies fever, chills, but reports increased exercise intolerance DERMATOLOGIC: Denies itch, rash or lesions HEENT: Reports headache, blurriness, but denies diplopia or decreased visual acuity, ear pain, tinnitus, rhinorrhea, sinus tenderness or sore throat RESPIRATORY: Reports SOB, cough, denies hemoptysis or pleuritic chest pain CARDIOVASCULAR: Reports chest discomfort and chest pain, LE edema, but denies palpitation or syncope GASTRO INTESTINAL: Denies cramps, nausea/vomiting, diarrhea or reports constipation, hematochezia and melena MUSCULOSKELATAL: Denies muscle pain/weakness, joint tenderness/pain or swelling PSYCH: Admits to worsening anxiety, or depression NEURO: Denies vertigo, dizziness, or ataxia GENITURINARY: Denies dysuria, nocturia or urinary incontinence - Constitutional Vitals: Temp Pulse Resp BP Pulse Ox 97.8 F 78 18 158/80 98 07/22/19 07:39 07/22/19 07:39 07/22/19 07:39 07/22/19 07:39 07/22/19 07:39 Exam: GENERAL: Morbidly Obese male NAD, A&O x3, pleasant and conversant, , sister at the bedside SKIN: [place] warm dry No skin lesions or rashes, non-jaundiced EYES: EOMI, PERRLA, no sclera icterus HENT: Head atraumatic, no facial asymmetry, frontal and maxillary sinus non-tender, normal hearing, oropharynx and mucosa moist and without any exudates NECK: No cervical lymphadenopathy, trachea midline, thyroid is palpable does not appear enlarged LUNGS: vesicular breath sounds, clear to auscultation, no wheeze, rhonchi, rales or crackles. Non labored respirations HEART: Normal rate and rhythm, no murmurs or rubs ABDOMEN: Obese, soft, non-tender, non-distended, bowel sounds x 4 normoactive EXTRMITIES: No LE asymmetry, No LE edema, pedal pulses 1+ and radial pulses 2 + and equal bilaterally NEURO: Speech and comprehension appears intact. PSYCH: Cooperative, non- anxious or irritable, mood and affect is appropriate Internal Med - H&P Results - Labs CBC & Chem 7: 07/22/19 07:43 07/22/19 07:43 Labs: Short CBC 07/22/19 Range/Units 07:43 WBC 7.1 (4.3-11.1) K/mcL Hgb 15.1 (12.9-16.9) g/dL Hct 43.7 (37.5-50.1) % Plt Count 186 (140-400) K/mcL Neutrophils # 4.6 (1.6-8.9) K/mcL Cardiac Enzymes 07/22/19 Range/Units 07:43 Troponin I < 0.03 (< 0.04) ng/mL - Assessment and Plan (1) Chest pain Current Visit: Yes Status: Acute Assessment and plan: Patient with a strong family history for coronary artery disease with parents, his younger brother had KS at age 29. Patient has had intermittent episodes of chest pain for years however with increase frequency and intensity over the past few months. Initial ischemic workup with troponin has been negative given his significant family history and presenting symptoms will consult cardiology to evaluate him for possible inpatient ischemic workup Qualifiers: Chest pain type: unspecified Qualified Code(s): R07.9 - Chest pain, unspecified (2) Dyspnea Current Visit: Yes Status: Acute Assessment and plan: Patient with progressively worsening dyspnea has been initiated with a CTA to rule out PE and EGD will add 2-D echo. On exam does not appear to be volume overloaded and his lung exam was benign with no concern for crackles or wheezing Qualifiers: Dyspnea type: dyspnea on exertion Qualified Code(s): R06.09 - Other forms of dyspnea (3) Headache Current Visit: Yes Status: Acute Assessment and plan: Patient is reporting left-sided headache acute and chronic although with some visual disturbance with a CT of the head given his atypical presentation, and him being considered for ischemic workup Qualifiers: Headache type: unspecified Headache chronicity pattern: acute headache Intractability: not intractable Qualified Code(s): R51 - Headache (4) DMII (diabetes mellitus, type 2) Current Visit: Yes Status: Acute Assessment and plan: Patient admits to being noncompliant with his diabetic regimen- medication and diet will place on insulin short-acting and long-acting once he is no longer nothing by mouth for now will place on every 6 hours Accu-Cheks and sliding scale Qualifiers: 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 residential use Diabetes mellitus complication status: with neurologic complications Diabetes mellitus complication detail: with polyneuropathy Qualified Code(s): E11.42 - Type 2 diabetes mellitus with diabetic polyneuropathy (5) HLD (hyperlipidemia) Current Visit: Yes Status: Acute Assessment and plan: We will check lipid profile pneumonic continue his home dose of Lipitor Qualifiers: Hyperlipidemia type: pure hypercholesterolemia Qualified Code(s): E78.00 - Pure hypercholesterolemia, unspecified; E78.0 - Pure hypercholesterolemia (6) DEDE on CPAP Current Visit: Yes Status: Acute (7) Hypertension Current Visit: Yes Status: Acute Assessment and plan: Presents complaining of headaches worsen BP on the telemetry bedside was 147/84, on admission was 158/80 will monitor clinically correlate a head CT have been ordered Qualifiers: Hypertension type: essential hypertension Qualified Code(s): I10 - Essential (primary) hypertension (8) DVT prophylaxis Current Visit: Yes Status: Acute Assessment and plan: SCDs for now - Time Spent With Patient Total time spent is greater than 50% in coordination of care (as documented) at patient's floor/unit and/or counseling patient:
[2019-07-22 09:13] LABS: BUN/Creatinine Ratio 18 (6-26); Blood Urea Nitrogen 14 mg/dL (8-23); Calcium 9.1 mg/dL (8.6-10.3); Carbon Dioxide 20 mEq/L (23-29); Chloride 104 mEq/L (98-107); Glucose 247 mg/dL (70-105); Osmolality,Calculated 273 (280-300); Potassium 4.4 mEq/L (3.5-5.1); Sodium 127 mEq/L (136-145); eGFR For African Americans > 60 (> 60); eGFR For Non-African Americans > 60 (> 60)
[2019-07-22] MEDS ORDERED: D5% in Water 1,000 ML IVC PRN (09:29)
[2019-07-22] MEDS ORDERED: Dextrose Gel 15 GM/37.5 ML TUBE PO PRN ×2 (09:29)
[2019-07-22] MEDS ORDERED: *HR* Dextrose 50 % in Water (Syg) 50 ML SYRINGE IVP PRN (09:29)
[2019-07-22] MEDS ORDERED: *HR* HYDROcodone/Acet 10/325 mg TABLET PO PRN (09:47)
[2019-07-22] MEDS: Nicotine 21 MG PATCH.TD24 TD SCH (12:02)
[2019-07-22] MEDS: Insulin LISPRO 300 UNITS/3 ML VIAL SQ SCH ×3 (12:08→23:44)
--- NOTE | 2019-07-22 12:31 | Electrocardiograph Report ---
[place] [id number] Test Date: 2019-07-22 Pat Name: Nicolás Ferrell Department: EXAM23 Room: 3B41 Gender: M Marker Machine: : [id number] Requested By: Flor Hartley Order Number: [id number] Reading MD: Enzo Garcia Measurements Intervals [place] Rate: 68 P: 22 CA: 170 QRS: 23 QRSD: 96 T: 41 QT: 396 QTc: 422 Interpretive Statements Sinus rhythm Low voltage, precordial leads Electronically Signed On 07-22-2019 12:29:36 EDT by Enzo Garcia
--- NOTE | 2019-07-22 13:41 | Cardiology Consult Note ---
<Daniel Cedeno - Last Filed: 07/22/19 15:20> Date of Encounter: 07/22/19 Time of Encounter: 14:00 Assessment and Plan (1) Chest discomfort Current Visit: Yes Status: Acute Patient presents with progressively worsening chest discomfort and shortness of breath. Worse on exertion, increasing in severity. Located Left Side, described as dull/ache, relieved after rest. Risk factors for CAD include HTN/HLD/DM, Tobacco Abuse and Strong Family History. Recently had Colonoscopy and reported to have a new murmur, PCP confirmed no hx of Murmur. D-Dimer performed outpatient was elevated >1700, pt advised to come to ED. Last Cardiac Work up was Patient does admit to recent weight gain, not overtly fluid overloaded on Exam BNP normal, Troponins negative x2 thus far EKG negative for ischemia Patient is currently without chest discomfort Etiology dyspnea and chest discomfort is either anginal equivalent vs obesity/fluid overload with associated chest-wall restriction Plan: -Will trend Troponin x3 -Telemetry -Strict I/O -Limited Echo -Will trial one round IV Lasix 40mg and assess response to better elucidate current fluid status -Continue his statin, add low dose Aspirin -NPO midnight in anticipation of possible Stress Test in the morning Further Recommendations per Dr. Rowland (2) Dyspnea on exertion Current Visit: Yes Status: Acute Several month history of progressively worsening dyspnea on exertion. Significant tobacco abuse history may be contributing Also found to have a new systolic murmur, no Echo on file Last Stress test 2017 negative for ischemia No evidence of fluid overload on exam but has gained significant weight recently Will trial a dose of IV Lasix and assess response (3) Family history of coronary artery disease Current Visit: Yes Status: Acute Significant history of CAD Brother with CA 29, total 15 stents placed Mother and Father 2/2 CAD (4) Tobacco abuse Current Visit: Yes Status: Acute Significant history of tobacco abuse Reported 2ppd for most of his life, unsure when he began quit one year ago, but started back up 2 months ago roughly 80 pack/year smoking history Counseled on cessation (5) HLD (hyperlipidemia) Current Visit: Yes Status: Acute Patient endorses history of Hyperlipidemia Currently on Lipitor 40mg daily Will order lipid panel to further risk stratify Qualifiers: Hyperlipidemia type: pure hypercholesterolemia Qualified Code(s): E78.00 - Pure hypercholesterolemia, unspecified; E78.0 - Pure hypercholesterolemia (6) Hypertension Current Visit: Yes Status: Acute BP 158/80 on admission Not on any antihypertensive currently Will monitor today and add meds as needed Qualifiers: Hypertension type: essential hypertension Qualified Code(s): I10 - Essential (primary) hypertension Discussion w patient/family: The assessment and plan as outlined above was discussed with the patient and/or family members who expressed understanding and agreement. All questions were answered. Thank you for involving us in the care of your patient. Please call with any questions. History of Present Illness Consult date: 07/22/19 Consult reason: Ischemic Work-Up Chief complaint: chest pressure/SOB History of present illness: Mr. Ferrell is a 64 year old male with PMH of DM, HLD, HTN, DEDE not on CPAP, tobacco abuse, who presents to the ED with complaints of progressively increasing shortness of breath, worse on exertion, and chest pressure of several months duration that has acutely worsened as of late. Patient states he has had exertional chest pain for several months, he did not seek medical attention for this symptom because he beleived it was normal aging. However, as of late pt states the pain has become significantly worse on even minimal exertion. He reports associated diaphoresis and some nausea with this as well. Denies radiating arm or neck pain. Localizes the pain to left sternum, non-reporducible on exertion, no chest pain currently at time of my encounter but pt states if he were to stand and walk out of room to hallway he would have to sit down because of the pain and shortness of breath. Has a signficant family history of CAD, Mother and Father both from CAD, Brother had CA age 29 and currently has roughly 15 stents. Patient states he was a 2ppd smoker most of his life but quit about one year ago, however began smoking again 2 months ago. Patient did undergo a colonoscopy recently and was told by anesthesiologist that he has a murmur, saw his PCP later that same day who confirmed the murmur and the fact that this is new for him. PCP did order a D-Dimer which was significantly elevated and the pt was referred to the ED for further evaluation. On arrival, BP 158/80, HR 78, RR 18, SpO2 95% on RA. Physical exam revealed a morbidly obese male with a grade 3 systolic murmur. Lungs clear, legs w/o edema. CBC was unremarkable. BMP revealed sodium 127, CO2 20, glucose 247. Rest of laboratory work up was negative. BNP was not elevated. Troponin was negative x2. EKG showed normal sinus rhythm. CTA was negative for PE. CT head showed no acute intracranial process. Patient did have a pharmacological stress test performed in 07/19/17 that was negative for ischemia, gated EF 70%. Past Med Surg Social Fam HX - Past Medical History Medical history: arthritis, DVT, diabetes, hyperlipidemia, hypertension, other Additional medical history: sleep apnea, neuropathy Psychiatric history: no psych history - Past Surgical History Surgical History: herniorrhaphy, knee replacement, orthopedic, other, other Additional surgical history: Right artificial wrist, screws and rods in right arm. - Social History Smoking Status: Current some day smoker Smokeless Tobacco Status: No Alcohol use: rarely Drug use: none - Family History Mother Living Status: Hx Family Cardiac Disorders: Yes Hx Family Cancer: Yes Father Living Status: Hx Family Cardiac Disorders: Yes Hx Family Respiratory Disorders: Yes (COPD) Hx Family GI Disorders: Yes (DM) Medications and Allergies Atorvastatin [Lipitor] 40 mg PO HS 02/15/18 [History] Empagliflozin [Jardiance] 10 mg PO HS 02/15/18 [History] HYDROcodone/Acet 10/325 mg [[place] 10-325 mg] 1 tab PO Q6HR PRN 02/15/18 [History] Albuterol Sulfate [Proair Hfa] 2 puff IH Q4H PRN 07/22/19 [History] GlipiZIDE XL (24 HR) [Glucotrol XL] 10 mg PO DAILY 07/22/19 [History] Insulin Glargine [Lantus] 10 unit SQ HS 07/22/19 [History] Allergy/AdvReac Type Severity Reaction Status Date / Time acetaminophen [From Percocet] AdvReac Gastrointestinal Verified 07/22/19 15:55 Upset meloxicam [From Mobic] AdvReac Dizziness Verified 07/22/19 15:55 oxycodone [From Percocet] AdvReac Gastrointestinal Verified 07/22/19 15:55 Upset All Systems Review: The remainder of the systems were reviewed and are negative Physical Examination Vital Signs, Last 4 Hours Temp Pulse Resp BP Pulse Ox 07/22/19 11:17 97.8 F 58 18 110/53 96 07/22/19 10:40 16 132/63 Other: Gen: alert and oriented, NAD, vitals stable Head: atraumatic normocephalic Eyes: anicteric sclera, EOMI ENT: mucous membranes moist, oropharynx clear NecK: trachea midline, no thyromegaly, no JVD CV: RRR, grade 3 systolic murmur, heard best left sternal border Resp: CTAB, no wheezes rales rhonchi Abd: obese, distended, soft, nontender, no organomegaly Ext: no peripheral edema, no rash, no clubbing, no cyanosis, pulses intact Results 07/22/19 07:43 07/22/19 07:43 Lab Results 07/22/19 07/22/19 07/22/19 07:43 07:43 07:43 WBC 7.1 Hgb 15.1 Hct 43.7 Plt Count 186 Sodium 127 L Potassium 4.4 Chloride 104 Carbon Dioxide 20 L BUN 14 Creatinine 0.77 Glucose 247 H Calcium 9.1 Troponin I < 0.03 B-Natriuretic Peptide 34 Consult Discharge Plan - Plan Referrals: Anu Forman, 4 H [employer]ELOP[employer]IST [Primary Care Provider] - Cardiac Rehab - Cardiac Rehab Cardiac Rehab: Phase I consult completed. Patient was educated on why Cardiac Rehabilitation is beneficial to his/her health. Participating in a cardiac rehabilitation can improve the following: strengthen your heart, improve ejection fraction, weight reduction, decrease cholesterol levels, lower blood pressure, lower blood sugar, improve stamina, and enhance self-image. If he/she has any questions, they were instructed to call [facility] at [phone]. <Elza Rowland - Last Filed: 07/22/19 17:25> Date of Encounter: 07/22/19 - Attending Attestation I examined this patient and my medical decision-making was reviewed with the Resident Physician. I agree with the documented findings, disposition and treatment plan as described. Mr. Ferrell presents with progressive dyspnea on exertion and exertional chest tightness worse over the last few weeks. Symptoms exacerbated after undergoing prep for Cscope recently. EKG unremarkable with negative serial troponins. CTA negative for PE. Does demonstrate presence of coronary atherosclerosis. Patient with multiple cardiovascular risk factors including hypertension, dyslipidemia, poorly controlled diabetes now requiring insulin, ongoing tobacco abuse and morbid obesity with significant family history of CAD. Given the extent of his cardiovascular risk factors, presence of CAD on CTA and typical anginal discomfort concerning for [place], recommend proceeding with an ischemic evaluation. R/B/A of [facility] were discussed in detail with the patient. The patient expressed understanding and has decided to proceed with left heart catheterization. TAYLOR may also be secondary to acute diastolic CHF. Recommend an Echo and trial of lasix. Will need PFTs as outpatient. Smoking cessation strongly encouraged. Assessment and Plan Discussion w patient/family: The assessment and plan as outlined above was discussed with the patient and/or family members who expressed understanding and agreement. All questions were answered. Thank you for involving us in the care of your patient. Please call with any questions. History of Present Illness History of present illness: Mr. Ferrell is a 64 year old male All Systems Review: The remainder of the systems were reviewed and are negative Physical Examination Vital Signs, Last 4 Hours Temp Pulse Resp BP Pulse Ox 07/22/19 15:27 98.2 F 73 18 130/68 96 Results 07/22/19 07:43 07/22/19 07:43 Lab Results 07/22/19 07/22/19 07/22/19 07:43 07:43 07:43 WBC 7.1 Hgb 15.1 Hct 43.7 Plt Count 186 INR APTT Sodium 127 L Potassium 4.4 Chloride 104 Carbon Dioxide 20 L BUN 14 Creatinine 0.77 Glucose 247 H Calcium 9.1 Troponin I < 0.03 B-Natriuretic Peptide 34 07/22/19 07/22/19 13:30 14:19 WBC Hgb Hct Plt Count INR 0.9 APTT 33.2 Sodium Potassium Chloride Carbon Dioxide BUN Creatinine Glucose Calcium Troponin I < 0.03 B-Natriuretic Peptide Cardiac Rehab - Cardiac Rehab Cardiac Rehab: Phase I consult completed. Patient was educated on why Cardiac Rehabilitation is beneficial to his/her health. Participating in a cardiac rehabilitation can improve the following: strengthen your heart, improve ejection fraction, weight reduction, decrease cholesterol levels, lower blood pressure, lower blood sugar, improve stamina, and enhance self-image. If he/she has any questions, they were instructed to call [facility] at [phone].
[2019-07-22 15:00] LABS: INR 0.9; Prothrombin Time 10.7 Seconds (9.4-12.1)
[2019-07-22 15:03] LABS: Activated Partial Thrombo Time 33.2 Seconds (26.0-36.0)
[2019-07-22] MEDS ORDERED: Furosemide 40 MG in 0.9 % Sodium Chloride 50 ML IV ONE (15:34)
[2019-07-22] MEDS ORDERED: PREGABALIN 400 MG PO SCH (21:00)
[2019-07-23 01:30] LABS: Basophils % 0.5 %; Eosinophils # 0.3 K/mcL (0.0-0.6); Eosinophils % 3.9 %; Hematocrit 42.2 % (37.5-50.1); Hemoglobin 14.1 g/dL (12.9-16.9); Immature Granulocytes % 1.4 % (0-4); Immature Platelets 2.2 % (1.1-6.1); Lymphocytes # 2.3 K/mcL (0.6-4.6); Lymphocytes % 26.5 %; Mean Corpuscular HGB Conc 33.4 g/dL (31.6-35.5); Mean Corpuscular Volume 86.8 fL (83.0-100.0); Mean Platelet Volume 9.4 fL (9.4-12.4); Monocytes # 0.7 K/mcL (0.0-1.3); Neutrophils # 5.1 K/mcL (1.6-8.9); Platelet Count 174 K/mcL (140-400); Red Blood Count 4.86 M/mcL (4.19-5.50); Red Cell Distribution Width 14.4 % (11.5-14.5); Segmented Neutrophils % 59.7 %; White Blood Count 8.6 K/mcL (4.3-11.1)
[2019-07-23 02:01] LABS: BUN/Creatinine Ratio 20 (6-26); Blood Urea Nitrogen 17 mg/dL (8-23); Carbon Dioxide 23 mEq/L (23-29); Chloride 100 mEq/L (98-107); Chol/HDL Ratio 7.5 (0-4.9); Cholesterol 209 mg/dL (< 200); Glucose 211 mg/dL (70-105); HDL Cholesterol 28 mg/dL (40-59); Osmolality,Calculated 280 (280-300); Phosphorous 3.5 mg/dL (2.7-4.5); Potassium 4.1 mEq/L (3.5-5.1); Sodium 131 mEq/L (136-145); Triglycerides 656 mg/dL (< 150); eGFR For African Americans > 60 (> 60); eGFR For Non-African Americans > 60 (> 60)
[2019-07-23] MEDS: Insulin LISPRO 300 UNITS/3 ML VIAL SQ SCH ×3 (05:35→17:12)
[2019-07-23] MEDS ORDERED: Perflutren Lipid Microsphere 1.3 ML in 0.9 % Sodium Chloride 8.7 ML IVP ONE (08:03)
[2019-07-23] MEDS ORDERED: Perflutren Lipid Microsphere 2 ML VIAL ONE (08:06)
--- NOTE | 2019-07-23 10:26 | Internal Med Progress Note ---
Hospitalist Progress Note - Encounter Date of Encounter: 07/23/19 Time of Encounter: 10:24 - Subjective Interval History: Pt seen and examined in the room. Reported occasional chest pain and sob. - Exam Vitals: Temp Pulse Resp BP Pulse Ox 97.7 F 60 15 138/84 93 07/23/19 06:23 07/23/19 06:23 07/23/19 06:23 07/23/19 06:23 07/23/19 06:23 Exam: GENERAL: Morbidly Obese male NAD, A&O x3, pleasant and conversant, , sister at the bedside SKIN: [place] warm dry No skin lesions or rashes, non-jaundiced EYES: EOMI, PERRLA, no sclera icterus HENT: Head atraumatic, no facial asymmetry, frontal and maxillary sinus non- tender, normal hearing, oropharynx and mucosa moist and without any exudates NECK: No cervical lymphadenopathy, trachea midline, thyroid is palpable does not appear enlarged LUNGS: vesicular breath sounds, clear to auscultation, no wheeze, rhonchi, rales or crackles. Non labored respirations HEART: Normal rate and rhythm, no murmurs or rubs ABDOMEN: Obese, soft, non-tender, non-distended, bowel sounds x 4 normoactive EXTRMITIES: No LE asymmetry, No LE edema, pedal pulses 1+ and radial pulses 2 + and equal bilaterally NEURO: Speech and comprehension appears intact. PSYCH: Cooperative, non- anxious or irritable, mood and affect is appropriate - Assessment and Plan (1) Chest pain Current Visit: Yes Status: Acute Assessment and Plan: 07/22 Patient with a strong family history for coronary artery disease with parents, his younger brother had SD at age 29. Patient has had intermittent episodes of chest pain for years however with increase frequency and intensity over the past few months. Initial ischemic workup with troponin has been negative given his significant family history and presenting symptoms will consult cardiology to evaluate him for inpatient ischemic workup. 07/23 CTA negative for PE. LHC and echo today. cardio following. (2) Dyspnea Current Visit: Yes Status: Acute Assessment and Plan: improved with treatment, bronchodilators. Pending echo and LHC today. (3) Headache Current Visit: Yes Status: Acute Assessment and Plan: improved with pain meds, monitoring. (4) DMII (diabetes mellitus, type 2) Current Visit: Yes Status: Acute Assessment and Plan: resume home basal insulin. started on insulin sliding scale. (5) HLD (hyperlipidemia) Current Visit: Yes Status: Acute Assessment and Plan: Not well controlled, cholesterol 209, LDL TNP and HDL 29. Continue Lipitor 40 mg daily, will increase dose. (6) DEDE on CPAP Current Visit: No Status: Chronic Assessment and Plan: continue cpap. (7) Hypertension Current Visit: Yes Status: Acute Assessment and Plan: controlled, continue home meds. (8) DVT prophylaxis Current Visit: Yes Status: Acute Assessment and Plan: SCDs for now - Time Spent with Patient Total time spent is greater than 50% in coordination of care (as documented) at patient's floor/unit and/or counseling patient: Greater than 35 minutes Plan of Care Discussed with: patient Internal Medicine: Result - Labs CBC & Chem 7: 07/23/19 00:33 07/23/19 00:33 Labs: Short CBC 07/23/19 Range/Units 00:33 WBC 8.6 (4.3-11.1) K/mcL Hgb 14.1 (12.9-16.9) g/dL Hct 42.2 (37.5-50.1) % Plt Count 174 (140-400) K/mcL Neutrophils # 5.1 (1.6-8.9) K/mcL BMP 07/23/19 00:33 Sodium 131 L Potassium 4.1 Chloride 100 Carbon Dioxide 23 BUN 17 Creatinine 0.85 Glucose 211 H Calcium 9.0 Cardiac Enzymes 07/22/19 07/22/19 Range/Units 13:30 19:40 Troponin I < 0.03 < 0.03 (< 0.04) ng/mL - ABG Interpretation ABG results: PT/INR, D-dimer PT 10.7 Seconds (9.4-12.1) 07/22/19 14:19 - VTE Documentation of Mechanical Device: Intermittent pneumatic compression device Consult Discharge Plan - Plan Referrals: Anu Forman, [employer] [Primary Care Provider] - (1) Chest pain Qualifiers: Chest pain type: unspecified Qualified Code(s): R07.9 - Chest pain, unspecified (2) Dyspnea Qualifiers: Dyspnea type: dyspnea on exertion Qualified Code(s): R06.09 - Other forms of dyspnea (3) Headache Qualifiers: Headache type: unspecified Headache chronicity pattern: acute headache Intractability: not intractable Qualified Code(s): R51 - Headache (4) DMII (diabetes mellitus, type 2) Qualifiers: Diabetes mellitus intermodal dispatcher insulin use: without intermodal dispatcher use Diabetes mellitus complication status: with neurologic complications Diabetes mellitus complication detail: with polyneuropathy Qualified Code(s): E11.42 - Type 2 diabetes mellitus with diabetic polyneuropathy (5) HLD (hyperlipidemia) Qualifiers: Hyperlipidemia type: pure hypercholesterolemia Qualified Code(s): E78.00 - Pure hypercholesterolemia, unspecified; E78.0 - Pure hypercholesterolemia (7) Hypertension Qualifiers: Hypertension type: essential hypertension Qualified Code(s): I10 - Essential (primary) hypertension
[2019-07-23] MEDS: Aspirin 81 MG TAB.CHEW PO SCH (10:52)
[2019-07-23] MEDS ORDERED: Nitroglycerin 0.4 MG TAB.SUBL SL PRN (13:33)
[2019-07-23] MEDS ORDERED: Nitroglycerin 0.4 MG TAB.SUBL SL ONE (13:34)
--- NOTE | 2019-07-23 15:06 | Electrocardiograph Report ---
[place] [id number] Test Date: 2019-07-23 Pat Name: Nicolás Ferrell Department: 113 Room: 3B41 Gender: M Reweaver: : 1955 Requested By: Jaxon Abdul Order Number: [id number] Reading MD: Selwyn Estrada Measurements Intervals [place] Rate: 59 P: -7 FL: 168 QRS: 16 QRSD: 97 T: 22 QT: 417 QTc: 417 Interpretive Statements SINUS BRADYCARDIA INTERPRETATION BASED ON A DEFAULT AGE OF 40 YEARS Electronically Signed On 07-23-2019 15:04:54 EDT by Selwyn Estrada
[2019-07-23] MEDS: Nicotine 21 MG PATCH.TD24 TD SCH (17:12)
[2019-07-23] MEDS ORDERED: Insulin DETEMIR 100 UNIT/ML X5UNITS SQ SCH (21:00)
[2019-07-23] MEDS ORDERED: NON-FORMULARY MEDICATION 1 EACH EACH (Insulin Glargine [Lantus] 10 UNIT) SQ SCH (21:00)
[2019-07-24 02:18] LABS: BUN/Creatinine Ratio 26 (6-26); Blood Urea Nitrogen 21 mg/dL (8-23); Carbon Dioxide 24 mEq/L (23-29); Chloride 101 mEq/L (98-107); Glucose 246 mg/dL (70-105); Osmolality,Calculated 285 (280-300); Potassium 4.4 mEq/L (3.5-5.1); Sodium 132 mEq/L (136-145); eGFR For African Americans > 60 (> 60); eGFR For Non-African Americans > 60 (> 60)
[2019-07-24] MEDS: Insulin LISPRO 300 UNITS/3 ML VIAL SQ SCH ×3 (06:54→11:52)
[2019-07-24] MEDS ORDERED: *HR* Heparin 10,000 UNIT/10 ML VIAL ONE (07:15)
[2019-07-24] MEDS ORDERED: Nitroglycerin 1,000 MCG/10 ML VIAL IV ONE (07:15)
[2019-07-24] MEDS ORDERED: 0.9 % Sodium Chloride 1,000 ML ONE (07:15)
[2019-07-24] MEDS ORDERED: Heparin 1,000 UNITS/500 mL 500 ML ONE (07:15)
[2019-07-24] MEDS ORDERED: ISOVUE-370 200 ML INFUS..BTL ONE (07:15)
--- NOTE | 2019-07-24 07:46 | Pre-Sedation Evaluation ---
Pre-sedation evaluation - Pre-sedation checklist Date of procedure: 07/24/19 Procedure: C Recent Vitals: Last Vital Signs Temp 98.5 F 07/24/19 03:25 Pulse 59 07/24/19 03:25 Resp 17 07/24/19 04:04 BP 100/63 07/24/19 03:25 Pulse Ox 93 07/24/19 04:04 H&P (including ROS) documented in medical record: Yes Previous reaction to sedatives/anesthetics: No Dietary Status: NPO after Midnight Airway Assessment: Patient can open mouth completely, TMJ function normal Dentition: full dentition Possible difficult airway: No ASA Classification *see protocol: CLASS II-Mild systemic disease Plan of Care: Pt appropriate candidate for procedure/moderate/conscious sedation Cardiac Registry (Cardio Only) - Functional Capacity Functional Capacity: >=4 METS with symptoms - Clincal Frailty Scale Clinical Frailty Scale: Well
[2019-07-24] MEDS ORDERED: *HR* Midazolam HCl 2 MG/2 ML VIAL ONE (07:57)
[2019-07-24] MEDS ORDERED: Verapamil 5 MG/2 ML VIAL ONE (08:05)
[2019-07-24] MEDS ORDERED: Acetaminophen 325 MG TABLET PO PRN (08:32)
--- NOTE | 2019-07-24 08:32 | Event Note ---
Date of Encounter: 07/24/19 Time of Encounter: 08:31 - Cardiology Event Note Cath completed Normal LV + LVH ef=60% LAD mid 15% circ normal rca normal right radial approach Recommendation pulmonary evaluation for dyspnea. repeat echo for aortic valve gradient.
[2019-07-24] MEDS: Aspirin 81 MG TAB.CHEW PO SCH (10:12)
[2019-07-24 11:45] VITALS: BP 141/77
[2019-07-24] MEDS: Nicotine 21 MG PATCH.TD24 TD SCH (13:17)
--- NOTE | 2019-07-24 13:30 | Event Note ---
Date of Encounter: 07/24/19 Time of Encounter: 13:29 Minimal CAD on LHC. Very mild on TTE. No further cardiac testing appears necessary. Recommend aspirin/statin therapy. HR often 60s, unlikely to tolerate BB therapy. Risk factor modification. Cardiology will sign off.
--- NOTE | 2019-07-24 15:20 | Discharge Summary ---
- NOTES TO OUTPATIENT PROVIDER Notes to Outpatient Provider: f/u with PCP within 2 weeks. f/u with cardiology as scheduled. Date of Encounter: 07/24/19 Time of Encounter: 15:17 - Discharge Diagnosis (1) Chest pain Priority: Primary Status: Acute Qualifiers: Chest pain type: unspecified Qualified Code(s): R07.9 - Chest pain, unspecified (2) Dyspnea Priority: Primary Status: Acute Qualifiers: Dyspnea type: dyspnea on exertion Qualified Code(s): R06.09 - Other forms of dyspnea (3) Headache Priority: Primary Status: Acute Qualifiers: Headache type: unspecified Headache chronicity pattern: acute headache Intractability: not intractable Qualified Code(s): R51 - Headache (4) DMII (diabetes mellitus, type 2) Priority: Secondary Status: Chronic Qualifiers: Diabetes mellitus [facility] insulin use: without adjunct faculty for medical terminology use Diabetes mellitus complication status: with neurologic complications Diabetes mellitus complication detail: with polyneuropathy Qualified Code(s): E11.42 - Type 2 diabetes mellitus with diabetic polyneuropathy (5) HLD (hyperlipidemia) Priority: Secondary Status: Chronic Qualifiers: Hyperlipidemia type: pure hypercholesterolemia Qualified Code(s): E78.00 - Pure hypercholesterolemia, unspecified; E78.0 - Pure hypercholesterolemia (6) DEDE on CPAP Priority: Secondary Status: Chronic (7) Hypertension Priority: Secondary Status: Chronic Qualifiers: Hypertension type: essential hypertension Qualified Code(s): I10 - Essential (primary) hypertension (8) DVT prophylaxis Priority: Primary Status: Acute Hospital course: Mr. Ferrell is a 64 year old male with a history of diabetes, diabetic neuropathy, hyperlipidemia, hypertension, DEDE noncompliant to CPAP therapy, and chronic tobacco use. He presents to the ED with multiple complaints-complaining of chest pressure, dyspnea on exertion with minimal activity, acute headache, and was told by his PCP that he described this new onset of murmur. He continues to complain of left-sided chest discomfort has been intermittent now months although with increasing frequency and intensity. He stated that he recently had a colonoscopy yesterday due to his complaint of hematochezia and had polypectomy. He also complains of increasing nonproductive cough and when he presented to his primary care physician outpatient laboratory workup revealed elevated d-dimer. Patient recalls history of DVT status post knee arthroplasty but denies being on any anticoagulation therapy chronically. the sister stated that they have a strong family history for coronary artery disease, both parents and patient's younger brother had his first DC at age 29. Serial troponin was negative. EKG has no acute st-t changes. CTA of chest showed negative PE, no acute or chronic pulmonary lung diseases, incidental findings of bilateral adrenal gland small nodules. ECHO showed LVEF 60%, mild concentric left ventricular hypertrophy, mild left ventricular diastolic dysfunction, mild aortic regurgitation, and no evidence of pulmonary hypertension identified. Cardiology was consulted. Pt underwent LHC which showed minimal coronary artery disease. Asa was ordered as well as statins. His symptoms especially sob are highly likely related to morbid obesity and DEDE, he was instructed to wear CPAP. Patient is discharged home, he will f/u with PCP and cardiology as scheduled. Discharge discussed with: patient Time spent discussing smoking cessation with patient: more than 10 minutes - Time Spent with Patient Total time spent providing and/or coordinating discharge services: Time spent: Greater than 30 minutes - Discharge Medications Prescriptions: New Aspirin Enteric Coated [Aspirin EC] 81 mg PO DAILY #30 tablet. Continued HYDROcodone/Acet 10/325 mg [[place] 10-325 mg] 1 tab PO Q6HR PRN PRN Reason: Mild To Moderate Pain Atorvastatin [Lipitor] 40 mg PO HS Empagliflozin [Jardiance] 10 mg PO HS Albuterol Sulfate [Proair Hfa] 2 puff IH Q4H PRN PRN Reason: Dyspnea GlipiZIDE XL (24 HR) [Glucotrol XL] 10 mg PO DAILY Insulin Glargine [Lantus] 10 unit SQ HS Home Medications: Atorvastatin [Lipitor] 40 mg PO HS 02/15/18 [History] Empagliflozin [Jardiance] 10 mg PO HS 02/15/18 [History] HYDROcodone/Acet 10/325 mg [[place] 10-325 mg] 1 tab PO Q6HR PRN 02/15/18 [History] Albuterol Sulfate [Proair Hfa] 2 puff IH Q4H PRN 07/22/19 [History] GlipiZIDE XL (24 HR) [Glucotrol XL] 10 mg PO DAILY 07/22/19 [History] Insulin Glargine [Lantus] 10 unit SQ HS 07/22/19 [History] Aspirin Enteric Coated [Aspirin EC] 81 mg PO DAILY #30 tablet. 07/24/19 [Rx] Allergies/Adverse Reactions: Allergy/AdvReac Type Severity Reaction Status Date / Time acetaminophen [From Percocet] AdvReac Gastrointestinal Verified 07/22/19 15:55 Upset meloxicam [From Mobic] AdvReac Dizziness Verified 07/22/19 15:55 oxycodone [From Percocet] AdvReac Gastrointestinal Verified 07/22/19 15:55 Upset Date of admission: 07/22/19 10:14 Primary care physician: Anu Forman CNP Consults: 07/22/19 09:22 Consult to Cardiology [CONS] Stat Comment: Consulting Provider: [facility] Reason for Consult: patient with strong family hx of CAD, brother with DC at age 29. presents with multiple symptoms, hospitalized for possible inpatient Ischemic workup Call Completed: No Anticipated date of discharge: 07/24/19 - Constitutional Vitals: Temp Pulse Resp BP Pulse Ox 98.5 F 62 14 141/77 96 07/24/19 03:25 07/24/19 11:40 07/24/19 11:40 07/24/19 11:40 07/24/19 11:40 General appearance: Present: A&O X 3 Exam: GENERAL: Morbidly Obese male NAD, A&O x3, pleasant and conversant, , sister at the bedside SKIN: [place] warm dry No skin lesions or rashes, non-jaundiced EYES: EOMI, PERRLA, no sclera icterus HENT: Head atraumatic, no facial asymmetry, frontal and maxillary sinus non- tender, normal hearing, oropharynx and mucosa moist and without any exudates NECK: No cervical lymphadenopathy, trachea midline, thyroid is palpable does not appear enlarged LUNGS: vesicular breath sounds, clear to auscultation, no wheeze, rhonchi, rales or crackles. Non labored respirations HEART: Normal rate and rhythm, no murmurs or rubs ABDOMEN: Obese, soft, non-tender, non-distended, bowel sounds x 4 normoactive EXTRMITIES: No LE asymmetry, No LE edema, pedal pulses 1+ and radial pulses 2 + and equal bilaterally NEURO: Speech and comprehension appears intact. PSYCH: Cooperative, non- anxious or irritable, mood and affect is appropriate - Patient Status Disposition: Home, Self-Care Condition: Good Functional capacity at discharge: independent ambulation Overall status at discharge: patient is back to baseline - Discharge Instructions Instructions: Aspirin (By mouth), Left Heart Catheterization (DC) Follow Up With: Ramo Peters MD [Partnered Physician] - (The office will call you with a follow up appt.) Anu Forman CNP [Primary Care Provider] - 07/29/19 3:15 pm Additional Instructions: RISK FACTORS: STOP SMOKING: If you smoke, STOP. Smoking or tobacco use significantly increases your risk of heart disease because nicotine causes the arteries to narrow or constrict. It also causes fats to stick to the artery. Your chances of having a heart attack are greatly increased if you continue to smoke. For more information, call the education line for smoking cessation 1-046-KLJMLVC EAT A LOW FAT/CHOLESTEROL/SODIUM DIET: This diet may help reduce your chances of having a heart attack. LIFTING: With affected extremity: Avoid bending, pushing off and lifting more than 2 pounds for 24 hours The following 48 hours, avoid lifting anything more than 5 pounds Avoid strenuous activity or repetitive motions ACTIVITY: You may walk or climb stairs as tolerated You can resume sexual activity as tolerated In general, you are encouraged to engage in a minimum of 30 minutes or more of moderate intensity physical activity, such as brisk walking, daily or at least 3-4 times weekly BATHING Do not submerge the site into water (bath tub, hot tub, swimming pool, dishes) for 1 week. This can be a source for infection into the blood stream. You may shower after 24 hours SITE CARE: After 24 hours, you may remove the dressing and leave the site open to air. Keep the site clean and dry. Clean gently and pat dry. You can expect bruising and tenderness that gradually resolve within a week or two. Return to work as instructed per your physician Resume driving as instructed per physician Keep all scheduled follow up appointments Resume medications as instructed IMPORTANT: If prescribed a Platelet Aggregation Inhibitor such as, Plavix, Brilinta or Effient: Duration of therapy is minimum one year These medications are often used in combination with Aspirin in prevention of future heart attacks Never discontinue unless consult with your Scrapper STROKE (CVA) Risk factors for a stroke are: Age, cigarette smoking, diabetes, excessive alcohol consumption, family history, high blood pressure, overweight, physical inactivity, prior stroke, heart attack, diagnosis of carotid artery stenosis or other artery disease. Warning signs: Sudden numbness or weakness of the face, arm or leg; especially on one side of the body, sudden confusion, trouble speaking or understanding, sudden trouble seeing in one or both eyes, sudden trouble walking, dizziness, loss of balance or coordination, sudden severe headache with no cause. Call 911 or go to the Emergency Room. CONGESTIVE HEART FAILURE: If you have been diagnosed with Congestive Heart Failure (CHF) and your symptoms return, make an appointment with your physician Weigh yourself daily. Notify your physician if you have a weight gain of two or more pounds in one day or five or more pounds in one week. If you experience any difficulty breathing, please call 911 BLEEDING: Although the risk of bleeding is minimal, it can happen. If you have any bleeding from the site, apply firm pressure above the puncture site for 10-15 minutes. If the bleeding does not stop, continue manual pressure and call 911 CARDIAC REHABILITATION: If you have had a heart attack or cardiac stents placed, please ask your pacu rn if Cardiac Rehabilitation is right for you. Cardiac Rehabilitation is recommended, beneficial to your health and can improve the following: strengthen your heart, improve ejection fraction, weight reduction, decrease cholesterol levels, lower blood pressure, lower blood sugar, improve stamina and enhance self-image. If you have any questions please call [facility] at [phone]. Contact [facility] ( ) if: You develop a fever greater than 101 degrees Fahrenheit Your site becomes reddened or has any drainage You have an increase in pain or burning at the site or if a large knot forms at the site. If you experience chest pain, shortness of breath, dizziness, or extreme tiredn ess, stop the activity and rest. Please notify [facility] office if you experience any of these symptoms and they are not relieved by rest please call 911! - Diet and Activity Activity: increase activity as tolerated Diet: diabetic diet, low fat, low cholesterol, low salt diet - VTE Documentation of Mechanical Device: Intermittent pneumatic compression device
--- NOTE | 2019-07-24 15:30 | Invasive Diagnostic Lab Proc ---
Name: Nicolás Ferrell Date of Study: 07/24/2019 Date: 1955 Ht: 70.1in Medical Record#: [id number] Age: 64 Wt: 295.42lb Gender: Male BSA: 2.47 Order #: [id number] BMI: 42.29 Physicians Procedure Physician: Ramo Peters MD Referring MD: Referring MD: Staff Name Position Time In Mick Gilliland RN Monitor 07:57 AM Arthur Mercedes RN Wood Web Weaving Machine Operator 07:57 AM Wero Brown RT (R) Scrub 07:57 AM Azra Stoll RT (R) Scrub 07:57 AM Procedures Performed Procedure L HRT ARTERY/VENTRICLE ANGIO Pre-Procedure Checklist Informed consent is complete signed and on chart. H&P is on chart. ID band is on and ID verified with patient. Patient NPO for procedure The procedure was described for the patient and questions were answered. ECG is on chart. Plan of Care Patient will tolerate the procedure without complications. Adequate level of comfort will be maintained. Hemodynamics will remain stable Patient will recover from procedure without complications. Respiratory function will be maintained. Cardiac rhythm will remain stable. Patient temperature will be maintained. Patient and/or family have verbalized understanding of the procedure. Patient Education Allergies NONE KNOWN NO KNOWN DRUG ALLERGIES NKDA oxycodone acetaminophen meloxicam cephalexin Vital Signs Time BP (mmHg) HR (bpm) O2 Sat. RR (bpm) LOC 07:58 AM / % 5 = Fully awake and oriented or at pre-proc level 07:58 AM / % 5 = Fully awake and oriented or at pre-proc level 08:13 AM / % 4 = Oriented but drowsy 08:05 AM 144 / 82 62 % 10 08:10 AM 142 / 79 56 92 % 14 08:15 AM 121 / 71 68 94 % 16 08:20 AM 137 / 74 68 92 % 23 08:25 AM 133 / 72 61 94 % 21 Procedural Medications Time Medication Dose Units Method Given By 08:04 AM Oxygen 2 L/min nasal cannula Arthur Mercedes RN 08:04 AM Versed 2 mg Intravenous Arthur Mercedes RN 08:11 AM Lidocaine 2% 1 ml Subcutaneous Ramo Peters MD 08:12 AM Heparin 4000 units Nitroglycerin 200 mcg Verapamil 2.5 mg Intraarterial Ramo Peters MD ASA Classification: CLASS II- Mild systemic disease (i.e. well-controlled diabetes, hypertension, asthma, cigarette smoking) Osvaldo Score Preprocedure Postprocedure Activity Activity Circulation Circulation Consciousness Consciousness O2 Saturation O2 Saturation Respiratory Respiratory Total Score Total Score Contrast Agent: Isovue Diagnostic Contrast: 50 ml Total Contrast: 50 ml Fluoro Dose: 30 mGy Procedure Log Time Note Enter By 07:57 AM Pt arrived to [facility] 2 at 07:57 cedwards 07:57 AM Mick Gilliland RN Position: Monitor Time in: 07:57 cedwards 07:57 AM Arthur Mercedes RN Position: Wood Web Weaving Machine Operator Time in: 07:57 cedwards 07:57 AM Wero Brown RT (R) Position: Scrub Time in: 07:57 cedwards 07:58 AM Azra Stoll RT (R) Position: Scrub Time in: 07:57 cedwards 07:58 AM Patient charges- Angio tray pack, Navilyst 3mm J, Pulse Oximetry and ACIST tubing and transducer cedwards 07:58 AM Time: 07:58 Patient comfortable and pain free: Yes cedwards 07:58 AM Time: 07:58LOC: 5 = Fully awake and oriented or at pre-proc level cedwards 07:59 AM Physician arrived 07:59 cedwards 07:59 AM Wilber and jason completed cedwards 07:59 AM Sign in performed according to hospital policy. Informed consent was obtained. cedwards 08:01 AM Procedure start 08:01 cedwards 08:04 AM Recorded ECG: HR=60 Condition=Condition 1 08:04 AM Vitals capture started with the following parameters, Patient=Adult, Interval=5 min, Initial Gwdkuylv=948 mmHg, Deflation Rate=3 mmHg, Cuff placed on Right Arm 08:04 AM Time: 08:04 Oxygen on at 2 L/min per nasal cannula by Arthur Mercedes RN cedwards 08:04 AM Time: 08:04 Versed 2 mg Intravenous Given by Arthur Mercedes RN cedwards 08:05 AM HR=62 bpm, IDAV=406/82 mmhg, Resp=10 B/min 08:05 AM ASA Class CLASS II- Mild systemic disease (i.e. well-controlled diabetes, hypertension, asthma, cigarette smoking) cedwards 08:10 AM Time out was performed according to hospital policy. Conscious sedation and anesthesia was achieved (see medication log with in this report above) cedwards 08:10 AM HR=56 bpm, GICA=191/79 mmhg, SpO2=92.0 %, Resp=14 B/min 08:10 AM Pressure channel 2 zeroed. 08:11 AM Time: 08:11 1 ml Lidocaine 2% to right radial Subcutaneous Given by Ramo Peters MD cedwards 08:11 AM Access obtained by percutaneous puncture. 5/6Fr 10cm Terumo Glidesheath sheath placed in right Radial artery. [id number] cedwards 08:12 AM 0.035 260cm Navilyst 3mmJ wire [id number] cedwards 08:12 AM Time: 08:12 Patient given 4,000 units Heparin, 200 mcg Nitroglycerin, and 2.5 mg Verapamil Intraarterial by Ramo Peters MD. This is given to reduce risk of vessel spasm and thrombosis. cedwards 08:13 AM Time: 07:58LOC: 5 = Fully awake and oriented or at pre-proc level cedwards 08:13 AM Time: 07:58 Patient comfortable and pain free: Yes cedwards 08:14 AM 5Fr FL 3.5 catheter inserted over the wire DN cedwards 08:14 AM Recorded Pressure: Ao, HR=66, Condition=Condition 1 (Aorta) Ao 113/72/91 08:15 AM HR=68 bpm, FROJ=041/71 mmhg, SpO2=94.0 %, Resp=16 B/min 08:16 AM LCA angiography performed in multiple views. cedwards 08:16 AM Recorded Pressure: Ao, HR=77, Condition=Condition 1 (Aorta) Ao 104/66/83 08:17 AM Catheter removed cedwards 08:17 AM 5Fr FR 4 catheter inserted over the wire [facility] cedwards 08:18 AM RCA angiography performed in multiple views. cedwards 08:19 AM Catheter removed cedwards 08:20 AM HR=68 bpm, MGHV=589/74 mmhg, SpO2=92.0 %, Resp=23 B/min 08:20 AM 5Fr Pigtail catheter inserted over the wire [facility] cedwards 08:21 AM unable to cross valve with pigtail cedwards 08:21 AM 5Fr FR 4 catheter inserted over the wire [facility] cedwards 08:21 AM Catheter crossed the aortic valve and was selectively placed in the left ventricle. Pressures recorded on pullback for left heart catheterization. cedwards 08:22 AM Recorded Pressure: LV, HR=62, Condition=Condition 1 (Left Ventricle) LV 132/10/17 08:22 AM Recorded Pressure: LV, HR=60, Condition=Condition 1 (Left Ventricle) LV 138/16/23 08:23 AM Recorded Pressure: LV, Ao, HR=62, Condition=Condition 1 (Left Ventricle) LV 108/2/20, (Aorta) Ao 122/61/91 08:23 AM Hand injection of left ventricle cedwards 08:23 AM Catheter removed cedwards 08:23 AM Procedure completed at 08:23 07/24/2019 cedwards 08:23 AM Coronary Dominance: right cedwards 08:24 AM Did you address MARTHA flow and Dominance? YesCoronary Dominance: right cedwards 08:25 AM Sign out completed: Radiation Dose 340.43 mGy, 30 Gy/cm2 Fluoro Time: 3.9 Isovue 370 - 200ml contrast 50 ml given by Ramo Peters MD. Complications: None. The patient was discharged out of the geophysical laboratory chief in stable condition. Sedation minutes 19. Cardiac Rehab Consult needed: No. Confirmed administered medications: Yes cedwards 08:25 AM HR=61 bpm, XKOX=003/72 mmhg, SpO2=94.0 %, Resp=21 B/min 08:25 AM Isovue 370 - 200ml,1 Bottle(s) used. cedwards 08:26 AM Arterial sheath pulled, Vasc Band closure device used and was Successful 12 S/N. cedwards 08:26 AM 12 ml air in Vasc Band. cedwards 08:26 AM Estimated Blood Loss: minimal cedwards 08:26 AM Post ECG NSR cedwards 08:26 AM Post Blood Pressure 133/72 cedwards 08:27 AM Information taught Cardiac Cath and Vasc Band cedwards 08:27 AM Education needs Procedure, Plan of Care, and Disease Process cedwards 08:27 AM Learning barriers :None cedwards 08:27 AM Education Methods Verbal cedwards 08:27 AM Education evaluation Able to repeat information cedwards 08:27 AM Site status No bleeding/ No Hematoma - Rt Wrist as reported by Ramo Peters MD at 08:27 cedwards 08:27 AM Plavix, Effient or Brilinta given No cedwards 08:28 AM Family placed in consult room. cedwards 08:28 AM Complications: None cedwards 08:29 AM Time: 08:13 Patient comfortable and pain free: Yes cedwards 08:29 AM Time: 08:13LOC: 4 = Oriented but drowsy cedwards 08:32 AM Lesion found in Mid LAD. Pre Stenosis: 15 Pre MARTHA Flow: cedwards 08:35 AM Report given to Nataly MTZ Pt taken to Room #41. 08:35 cedwards 08:35 AM Patient out of room: 08:35 cedwards Complications Complication None None Hemodynamics Pressures Site Systolic/A Wave Diastolic/V Wave Mean AO 113 72 91 AO 104 66 83 LV 132 10 17 LV 138 16 23 LV 108 2 20 AO 122 61 91 Post Procedure Information Blood Pressure: 133/72 mmHg Rhythm: NSR Site Checks Time Location Status Staff Sheath In? Note 08:27 AM Rt Wrist No bleeding/ No Hematoma Ramo Peters MD Pulses Updated by Mick Gilliland RN on 07/24/2019 8:36:51 AM electronically signed on 07/24/2019 3:23:53 PM with status of Final
== END 2019-07-24 14:36 | disposition home or self-care (01) ==
LOC: SUATTDRO → EMEROOARM 07:26 → 3BNU 07:26
PROVIDERS: ADMIT Pharmacist; ATTEND Pharmacist

== ENCOUNTER 2020-12-06 10:33 | Observation (INO) ==
[2020-12-06] MEDS ORDERED: Isovue-370 500 ML BOTTLE IVP ONE (10:47)
[2020-12-06] MEDS ORDERED: 0.9 % Sodium Chloride 1,000 ML IVC ONE (11:25)
[2020-12-06] MEDS ORDERED: Prochlorperazine 10 MG/2 ML VIAL IVP STA (11:25)
[2020-12-06 11:42] LABS: Basophils # 0.1 K/mcL (0.0-0.2); Basophils % 0.6 %; Eosinophils # 0.4 K/mcL (0.0-0.6); Eosinophils % 4.5 %; Hematocrit 44.8 % (37.5-50.1); Hemoglobin 14.4 g/dL (12.9-16.9); Immature Granulocytes % 0.7 % (0-4); Lymphocytes # 1.5 K/mcL (0.6-4.6); Lymphocytes % 18.3 %; Mean Corpuscular HGB Conc 32.1 g/dL (31.6-35.5); Mean Corpuscular Hemoglobin 27.9 pg (28.0-33.3); Mean Corpuscular Volume 86.7 fL (83.0-100.0); Mean Platelet Volume 9.5 fL (9.4-12.4); Monocytes # 0.7 K/mcL (0.0-1.3); Monocytes % 8.9 %; Neutrophils # 5.5 K/mcL (1.6-8.9); Platelet Count 144 K/mcL (140-400); Red Blood Count 5.17 M/mcL (4.19-5.50); Red Cell Distribution Width 15.6 % (11.5-14.5); White Blood Count 8.2 K/mcL (4.3-11.1)
[2020-12-06 11:52] LABS: Prothrombin Time 11.3 Seconds (9.4-12.1)
[2020-12-06 11:54] LABS: Activated Partial Thrombo Time 28.6 Seconds (26.0-36.0)
[2020-12-06 12:16] LABS: BUN/Creatinine Ratio 14 (6-26); Blood Urea Nitrogen 12 mg/dL (8-23); Carbon Dioxide 23 mEq/L (23-29); Chloride 103 mEq/L (98-107); Glucose 159 mg/dL (70-105); Osmolality,Calculated 281 (280-300); Potassium 4.2 mEq/L (3.5-5.1); Sodium 134 mEq/L (136-145); eGFR For African Americans > 60 (> 60); eGFR For Non-African Americans > 60 (> 60)
[2020-12-06 12:17] LABS: Troponin I < 0.03 ng/mL (< 0.04)
[2020-12-06] MEDS ORDERED: Naloxone 0.4 MG/ML INJ IVP PRN (12:34)
[2020-12-06] MEDS ORDERED: Perflutren Lipid Microsphere 1.3 ML in 0.9 % Sodium Chloride 8.7 ML IVP PRN (12:37)
[2020-12-06] MEDS ORDERED: Aspirin 81 MG TAB.CHEW PO STA (13:47)
[2020-12-06] MEDS ORDERED: Dextrose Gel 15 GM/37.5 ML TUBE PO PRN ×2 (14:09)
[2020-12-06] MEDS ORDERED: D5% in Water 1,000 ML IVC PRN (14:09)
[2020-12-06] MEDS ORDERED: *HR* Dextrose 50 % in Water (Vial) 50 ML VIAL IVP PRN (14:09)
[2020-12-06] MEDS: *HR* Heparin 5,000 UNIT/ML VIAL SQ SCH (17:07)
[2020-12-06] MEDS: Insulin LISPRO 300 UNITS/3 ML VIAL SUBQ SCH (17:07)
[2020-12-06] MEDS ORDERED: Insulin LISPRO 300 UNITS/3 ML VIAL SUBQ SCH (21:00)
[2020-12-07] MEDS: *HR* Heparin 5,000 UNIT/ML VIAL SQ SCH (04:46)
[2020-12-07 06:10] LABS: Basophils % 0.5 %; Eosinophils # 0.4 K/mcL (0.0-0.6); Eosinophils % 5.1 %; Hematocrit 45.5 % (37.5-50.1); Hemoglobin 14.6 g/dL (12.9-16.9); Immature Granulocytes % 0.6 % (0-4); Lymphocytes # 1.6 K/mcL (0.6-4.6); Lymphocytes % 21.1 %; Mean Corpuscular HGB Conc 32.1 g/dL (31.6-35.5); Mean Corpuscular Hemoglobin 28.5 pg (28.0-33.3); Mean Corpuscular Volume 88.7 fL (83.0-100.0); Mean Platelet Volume 9.2 fL (9.4-12.4); Monocytes # 0.8 K/mcL (0.0-1.3); Neutrophils # 4.9 K/mcL (1.6-8.9); Platelet Count 167 K/mcL (140-400); Red Blood Count 5.13 M/mcL (4.19-5.50); Red Cell Distribution Width 15.7 % (11.5-14.5); Segmented Neutrophils % 62.7 %; White Blood Count 7.8 K/mcL (4.3-11.1)
[2020-12-07 06:23] LABS: Estimated Average Glucose 183 mg/dl
[2020-12-07 06:27] LABS: BUN/Creatinine Ratio 16 (6-26); Blood Urea Nitrogen 13 mg/dL (8-23); Calcium 8.8 mg/dL (8.6-10.3); Carbon Dioxide 25 mEq/L (23-29); Chloride 105 mEq/L (98-107); Chol/HDL Ratio 6.9 (0-4.9); Cholesterol 145 mg/dL (< 200); Glucose 139 mg/dL (70-105); HDL Cholesterol 21 mg/dL (40-59); Osmolality,Calculated 282 (280-300); Phosphorous 2.8 mg/dL (2.7-4.5); Potassium 4.4 mEq/L (3.5-5.1); Sodium 135 mEq/L (136-145); Triglycerides 488 mg/dL (< 150); eGFR For African Americans > 60 (> 60); eGFR For Non-African Americans > 60 (> 60)
[2020-12-07 06:30] VITALS: BP 115/70
[2020-12-07] MEDS ORDERED: *HR* HYDROcodone/Acet 10/325 mg TABLET PO PRN (08:36)
[2020-12-07] MEDS ORDERED: Fenofibrate 54 MG TABLET PO SCH (09:00)
[2020-12-07] MEDS ORDERED: Pregabalin 50 MG CAPSULE PO SCH (09:00)
[2020-12-07] MEDS ORDERED: Aspirin 81 MG TAB.CHEW PO SCH (09:00)
[2020-12-07] MEDS: Insulin LISPRO 300 UNITS/3 ML VIAL SUBQ SCH (09:42)
[2020-12-07] MEDS ORDERED: Insulin DETEMIR 100 UNIT/ML X5UNITS SUBQ SCH (21:00)
== END 2020-12-07 12:38 | disposition home or self-care (01) ==
LOC: 3BNU 10:33 → EMEROOARM 10:33 → SUATTDRO 14:24 → 3BNU 16:07
PROVIDERS: ADMIT Internal Medicine; ATTEND Internal Medicine